=== PATIENT | male | born 1985 | race Caucasian/White ===

== ENCOUNTER 2020-04-17 13:49 | Emergency (ER) | payer BC, SELFPAY ==
[2020-04-17 13:58] VITALS: BP 145/96; PULSE 94; RESP 16; TEMP 36.8; O2SAT 98
--- NOTE | 2020-04-17 14:03 | ED.URI ---
HPI - URI/Sore Throat General Chief Complaint: Upper Respiratory Infection Stated Complaint: nausea fever aches headache Time Seen by Provider: 04/17/20 14:09 Source: patient and RN notes reviewed Mode of arrival: ambulatory Limitations: no limitations History of Present Illness HPI Narrative: 35-year-old male presents with concern for 1 day history of fever that occurred 2 days ago, reports dry heaves with small amount of vomiting for the past 2 days, approximately 8 episodes altogether. He reports fatigue, body aches. Reports sore throat yesterday. Denies cough, nasal drainage, ear pain, sinus pressure. Reports occasional shortness of breath. Reports a coworker tested positive for coronavirus, so his whole company was sent home and told to get tested. He has not yet been tested. Reports taking ibuprofen for pain MD elicited complaint: fever and other (nausea and vomiting ) Related Data Home Medications Medication Instructions Recorded Confirmed omeprazole 40 mg PO DAILY 10/18/19 04/17/20 paroxetine HCl [Paxil] 40 mg PO QAM 10/18/19 04/17/20 cholecalciferol (vitamin D3) 250 mcg PO DAILY 04/17/20 04/17/20 [Vitamin D3] hydroxyzine HCl 25 mg PO DAILY 04/17/20 04/17/20 Allergies Allergy/AdvReac Type Severity Reaction Status Date / Time lisinopril Allergy Difficulty Verified 04/17/20 14:07 Breathing Review of Systems Review of Systems: Narrative: CONSTITUTIONAL: Reports malaise, fever. Denies chills, sweats, or fever. EYES: Denies visual changes, redness, or discharge. ENT: Denies rhinorrhea, congestion, sinus pain, otalgia. Reports 1 day history of sore throat. CARDIOVASCULAR: Denies chest pain, palpitations, or edema. RESPIRATORY: Denies cough, reports dyspnea. GASTROINTESTINAL: Reports abdominal pain, nausea, vomiting. Denies diarrhea SKIN: Denies rash or itching. MUSCULOSKELETAL: Reports myalgia. NEUROLOGIC: Denies headache. All systems reviewed & are unremarkable except as noted in HPI and below PMFSH Social History Social History (Updated 10/18/19 @ 10:04 by Jinny Queen CNP) Smoking status: Never smoker Gender identity (if verbalized by the patient): Male Comments At time of signature, agree with nursing past medical, surgical, social and family history. There is no relevant family history pertinent to the presenting complaint Exam Narrative: Exam Narrative: GENERAL: Well-appearing, well-nourished, and in no acute distress. HEAD: Normocephalic EYES: PERRLA, conjunctivae clear ENT: Mucous membranes moist. Oropharynx erythematous without lesions. Tonsils enlarged and without exudate, no drooling, no hoarseness, no trismus, uvula midline. NECK: Supple. CHEST: Clear to auscultation, breath sounds equal. No wheezing, rhonchi, rales, or stridor. No respiratory distress, speaks in full sentences. GI: Bowel sounds active, no palpable masses, no rebound tenderness, mild left upper quadrant tenderness. HEART: Regular rate and rhythm. No murmur heard. SKIN: Warm, dry, no rash. NEURO: Alert and oriented x3. PSYCH: Normal mood and affect Course Course Emergency Course: Discussed with patient limited diagnostic capability at [facility] to diagnose abdominal pain, nausea and vomiting. Discussed transferring to emergency room for further evaluation. Patient denies transfer at this time, reports I do not need to go to the emergency room . Patient is aware of diagnosis, understands and agrees to treatment plan. Anticipatory guidance given. Patient agrees to follow-up as directed and is aware of reasons to seek care at the emergency department. Portions of this record may have been created with voice recognition software Vital Signs Vital signs: Vital Signs Temperature 98.2 F 04/17/20 13:58 Pulse Rate 94 04/17/20 13:58 Respiratory Rate 16 04/17/20 13:58 Blood Pressure 145/96 H 04/17/20 13:58 Pulse Oximetry 98 04/17/20 13:58 Temperature 98.2 F 04/17/20 13:58 Pulse Rate 94
== END 2020-04-17 14:33 | disposition home or self-care (01) ==
PROVIDERS: Emergency Provider Nurse Practitioner
DX: R11.2 Nausea with vomiting, unspecified (principal); K21.9 Gastro-esophageal reflux disease without esophagitis; F41.9 Anxiety disorder, unspecified; F32.9 Major depressive disorder, single episode, unspecified
CPT/HCPCS: 87081; 87880; 99213; G0463

== ENCOUNTER 2021-03-30 19:50 | Emergency (ER) | payer BC, SELFPAY ==
[2021-03-30 19:59] VITALS: BP 138/91; PULSE 94; RESP 20; TEMP 36.9; O2SAT 99
[2021-03-30 20:10] VITALS: BP 138/91; PULSE 94; RESP 20; TEMP 36.9; O2SAT 99
== END 2021-03-30 20:21 | disposition left against medical advice (07) ==
LOC: EXPBETH 19:56
PROVIDERS: Emergency Provider Registered Nurse
DX: Z53.21 Procedure and treatment not carried out due to patient leaving prior to being seen by health care provider (principal)
CPT/HCPCS: 99199

== ENCOUNTER 2023-08-03 13:06 | Emergency (ER) | payer BC, SELFPAY ==
[2023-08-03 13:10] VITALS: BP 116/86; PULSE 96; RESP 18; TEMP 37; O2SAT 100
[2023-08-03 13:23] VITALS: BP 116/86; PULSE 96; RESP 18; TEMP 37
--- NOTE | 2023-08-03 14:00 | ED.URI ---
HPI - URI/Sore Throat General Chief Complaint: Upper Respiratory Infection Stated Complaint: Cough/Congestion/Vomiting Time Seen by Provider: 08/03/23 13:49 Source: patient and RN notes reviewed Mode of arrival: ambulatory Limitations: no limitations History of Present Illness HPI Narrative: Patient presents today with a one-week history of postnasal drip, sore throat, fatigue, mild cough. He was seen by his PCP on 07/26/2023, on the day of onset of his symptoms. He was tested for strep throat, COVID-19, and influenza and these were all negative. He was sent in a prescription for Medrol Dosepak, but was told not to take it until he followed up in 3 or 4 days with his primary again. He has not been able to obtain a follow-up appointment and was told to come to urgent care. He currently rates his pain 5/10 and has tried no [id number] treatment prior to arrival. Related Data Home Medications Medication Instructions Recorded Confirmed omeprazole 40 mg capsule,delayed 40 mg PO DAILY 10/18/19 08/03/23 release paroxetine HCl 40 mg tablet (Paxil) 40 mg PO QAM 10/18/19 08/03/23 hydroxyzine HCl 25 mg tablet 25 mg PO DAILY 04/17/20 08/03/23 aripiprazole 20 mg tablet 20 mg PO DAILY 03/30/21 08/03/23 Allergies Allergy/AdvReac Type Severity Reaction Status Date / Time lisinopril Allergy Difficulty Verified 08/03/23 13:22 Breathing Review of Systems Review of Systems: CONSTITUTIONAL: Denies body aches, fever, chills, or sweats.+ fatigue EYES: Denies visual changes, redness, or discharge. ENT: Denies rhinorrhea, congestion, or otalgia.+ postnasal drip, sore throat CARDIOVASCULAR: Denies chest pain, palpitations, or edema. RESPIRATORY: Denies dyspnea.+ cough GASTROINTESTINAL: Denies abdominal pain, nausea, vomiting, or diarrhea. GENITOURINARY: Denies dysuria or hematuria. SKIN: Denies rash, itching, or wounds. MUSCULOSKELETAL: Denies back pain, joint pain, or myalgia. NEUROLOGIC: Denies headache, numbness, tingling, or weakness. PSYCH: Denies depression or anxiety. [facility] Past Medical History Medical History (Updated 08/03/23 @ 14:03 by Amalia Pham, [employer], ) Anxiety Fracture of left foot GERD (gastroesophageal reflux disease) Social History Social History Smoking status: Never smoker Gender identity (if verbalized by the patient): Male Comments At time of signature, I have reviewed and agree with nursing past medical, surgical, social and family history unless otherwise noted. Please see nursing chart for further information. There is no relevant family history pertinent to the presenting complaint Exam Narrative: GENERAL: Well-appearing, well-nourished, and in no acute distress. HEAD: Normocephalic, atraumatic. EYES: EOMI. No redness or drainage. Conjunctivae normal. ENT: Mucous membranes pink and moist. Nares clear. No rhinorrhea. TMs normal bilaterally. Throat normal. Uvula midline. NECK: Normal AROM. Supple. No lymphadenopathy. CHEST: No respiratory distress. Clear to auscultation. HEART: Regular rate and rhythm. No murmur appreciated. Normal peripheral pulses. EXTREMITIES: Normal range of motion. No edema. SKIN: Warm, dry, no rash. Capillary refill normal. Normal skin turgor. NEURO: No focal deficits. Alert and oriented x3. Gait steady. PSYCH: Normal affect. No signs of depression or anxiety. Course Course Level of Care: Express Care Visit Vital Signs Vital signs: Vital Signs Temperature 98.6 F 08/03/23 13:10 Pulse Rate 96 08/03/23 13:10 Respiratory Rate 18 08/03/23 13:10 Blood Pressure 116/86 08/03/23 13:10 Pulse Oximetry 100 08/03/23 13:10 Oxygen Delivery Room Air 08/03/23 13:10 Temperature 98.6 F 08/03/23 13:23 Pulse Rate 96 08/03/23 13:23 Respiratory Rate 18 08/03/23 13:23 Blood Pressure 116/86 08/03/23 13:23 Pulse Oximetry 100 08/03/23 13:10 Oxygen Deli
== END 2023-08-03 14:05 | disposition home or self-care (01) ==
PROVIDERS: Emergency Provider Nurse Practitioner
DX: J06.9 Acute upper respiratory infection, unspecified (principal); K21.9 Gastro-esophageal reflux disease without esophagitis; F41.9 Anxiety disorder, unspecified
CPT/HCPCS: 99211; G0463

== ENCOUNTER 2025-05-31 14:22 | Emergency (ER) | payer SELFPAY ==
--- OUTSIDE RECORDS SUMMARY | 2025-05-31 14:25 | XMS_ITS | Clinical Summary ---
Author Organization [facility] Address [address] [place] [address] Care Team Providers Care Saddle Maker Name Role Phone Hollie Alvares NP Primary Care Provider [phone] Evy Huffman MD Unavailable Allergies Active Allergy Reactions Criticality Noted Date Comments Erythromycin Unknown,Itching Low 04/21/2016 Lisinopril Palpitations Low 09/14/2017 Medications cholecalciferol (VITAMIN D-3) 5,000 unit capsule Take 1 capsule (5,000 Units total) by mouth daily Active albuterol HFA (PROVENTIL HFA,VENTOLIN HFA,PROAIR HFA) 90 mcg/actuation inhaler Inhale 2 puffs every 6 (six) hours as needed Active fluticasone furoate-vilanteroL (BREO ELLIPTA) 100-25 mcg/dose diskus inhaler Inhale 1 puff daily Rinse mouth with water after use. Do not swallow. 30 each 11 4 Active ARIPiprazole (ABILIFY) 10 mg tabletIndications: Bipolar 1 disorder, mixed, severe (HCC) Take 1 tablet (10 mg total) by mouth daily 90 tablet 3 4 Active ondansetron ODT (ZOFRAN-ODT) 4 mg disintegrating tabletIndications: Nausea Take 1 tablet (4 mg total) by mouth every 8 (eight) hours as needed for nausea or vomiting 21 tablet 1 4 Active naproxen (NAPROSYN) 500 mg tablet Take 1 tablet (500 mg total) by mouth 2 (two) times a day as needed for pain 10 tablet 5 Active cyclobenzaprine (FLEXERIL) 10 mg tablet Take 1 tablet (10 mg total) by mouth 2 (two) times a day as needed for muscle spasms 10 tablet 5 Active HYDROcodone-acetam inophen (NORCO) 5-325 mg per tabletIndications: Pain Take 1 tablet by mouth every 6 (six) hours as needed for pain 5 tablet 5 Active hydrOXYzine (ATARAX) 25 mg tabletIndications: Anxiety TAKE 1 TABLET BY MOUTH ONCE DAILY NEEDED FOR ANXIETY 90 tablet 3 5 Active metFORMIN XR (GLUCOPHAGE XR) 500 mg 24 hr tabletIndications: Prediabetes Take 1 tablet (500 mg total) by mouth daily with breakfast 90 tablet 3 5 Active PARoxetine (PAXIL) 40 mg tabletIndications: Mild episode of recurrent major depressive disorder Take one 40 mg tablet with one 10 mg tablet by mouth daily 90 tablet 3 5 Active omeprazole (PriLOSEC) 40 mg capsuleIndications :Gastroesophageal reflux disease Take 1 capsule by mouth once daily 100 capsule 1 5 Active cholestyramine (QUESTRAN) 4 gram powderIndications: Diarrhea, unspecified type Take 1 packet (4 g total) by mouth 2 (two) times a day as needed (diarrhea) 60 packet 5 Active PARoxetine (PAXIL) 10 mg tabletIndications: Mild episode of recurrent major depressive disorder Take one 40 mg tablet with one 10 mg tablet by mouth daily 90 tablet 3 5 Active Active Problems Problem Noted Date Diagnosed Date Inflamed external hemorrhoid 01/26/2023 Assessment & Plan (01/27/2023 9:07 AM CDT): -advised patient to use hydrocortisone 2.5% cream twice daily as prescribed in ED -advised patient to increase water and fiber intake. Patient may use OTC Benefiber 1-3 times daily -if pain worsens or does not improve, let me know and we can refer to general surgery Low testosterone 09/04/2020 Assessment & Plan (07/22/2022 8:39 AM CDT): HPI: Condition is stable A&P: Discussed/ordered labs, encouraged healthy, low carbohydrate lifestyle and at least 150min/week of exercise, Dr. Us endo told him his levels are fine and not following further. Assessment & Plan (01/20/2022 8:36 AM CDT): HPI: Condition is stable A&P: Discussed/ordered labs, encouraged healthy, low carbohydrate lifestyle and at least 150min/week of exercise, continue Treatment plan by Dr. Us endocrinology-just monitoring Assessment & Plan (07/22/2021 7:34 AM CDT): HPI: Condition is stable A&P: Discussed/ordered labs, encouraged healthy, low carbohydrate lifestyle and at least 150min/week of exercise, continue Treatment plan by Dr. Us endocrinology Assessment & Plan (09/22/2020 9:30 AM UTILITY TECH): Diagnosed in 2018 and was on testosterone injection for one year He has been off testosterone for 6 month Patient asymptomatic Patient had normal TSH of 3.4 with normal metabolic panel in August/2020 Plan: We will obtain fasting am testosterone levels Discussed with patient that his testosterone could have been low due to untreated sleep apnea Follow up and further recommendation will be decided after we obtain above test results Assessment & Plan (09/04/2020 8:57 AM UTILITY TECH): He would like to see endocrinology He says his methylfolate has been very low He was previously on testosterone-he has been off of it x 4 mo. Prediabetes 09/04/2020 Assessment & Plan (02/27/2025 9:07 AM CDT): -chronic, stable -Discussed/ordered labs -encouraged healthy, low carbohydrate lifestyle and at least 150min/week of exercise. -continue on metformin XR 500 mg daily - start on zepbound 2.5mg weekly x 4 wks, then increase to 5 mg Discussed the importance of site rotation, stay 2 fingerbreadths away from belly button. Discussed the importance of cutting meals in half starting after first dose. Discussed that this will slow gastric emptying which will make pt feel full longer and fill up faster. Discussed the one bite or one gulp too much scenario that can increase nausea/vomiting. Listen to your body. Reiterated that pt does not have family or personal history of medullary thyroid cancer or pancreatitis. -Follow up in 3 months or sooner as needed Assessment & Plan (08/22/2024 9:28 AM UTILITY TECH): -chronic, stable -Discussed/ordered labs -encouraged healthy, low carbohydrate lifestyle and at least 150min/week of exercise. -continue on metformin XR 500 mg daily -Advised patient I will check with my staff to see if we ever received the PA for the [place] -Patient is currently taking semaglutide 0.5 mg weekly through [facility] Assessment & Plan (02/20/2024 1:37 PM CDT): -chronic, stable -Discussed/ordered labs -encouraged healthy, low carbohydrate lifestyle and at least 150min/week of exercise. -continue on metformin XR 500 mg daily Assessment & Plan (09/30/2023 10:26 AM UTILITY TECH): -chronic, Condition is unknown, no data to review at this time to make an evaluation -Discussed/ordered labs, encouraged healthy, low carbohydrate lifestyle and at least 150min/week of exercise. Assessment & Plan (01/27/2023 7:03 AM CDT): HPI: Condition is stable A&P: Discussed/ordered labs, encouraged healthy, low carbohydrate lifestyle and at least 150min/week of exercise. Assessment & Plan (07/20/2022 7:39 AM CDT): HPI: Condition is stable A&P: Discussed/ordered labs, encouraged healthy, low carbohydrate lifestyle and at least 150min/week of exercise Assessment & Plan (01/20/2022 7:00 AM CDT): HPI: Condition is stable A&P: Discussed/ordered labs, encouraged healthy, low carbohydrate lifestyle and at least 150min/week of exercise Assessment & Plan (07/22/2021 7:34 AM CDT): HPI: Condition is stable A&P: Discussed/ordered labs, encouraged healthy, low carbohydrate lifestyle and at least 150min/week of exercise Assessment & Plan (09/04/2020 9:08 AM UTILITY TECH): HPI: Condition is new A&P: Discussed/ordered labs, encouraged healthy, low carbohydrate lifestyle and at least 150min/week of exercise, work on lifestyle changes. No meds needed at this time. Bipolar 1 disorder, mixed, severe 08/14/2020 Assessment & Plan (04/22/2025 8:50 AM CDT): -chronic, improving -continue on Abilify 10 mg daily, paroxetine 40 and 10 mg daily, and hydroxyzine 25 mg daily as needed for anxiety -Follow up in 3 months or sooner as needed Patient reiterated no suicidal thoughts at this time; take medication as directed; contact 911 and go to the ER if becomes suicidal; discussed side effects of medication with patient; encouraged healthy diet and exericise; encouraged patient to see a counselor Assessment & Plan (02/27/2025 9:04 AM CDT): -chronic, not at goal- reports he has been feeling a little down over the past month -patient does not want to changed his medication at this time -continue on Abilify 10 mg daily, paroxetine 40 mg daily, and hydroxyzine 25 mg daily as needed for anxiety -Advised patient follow up if this does not improve or if it worsens Patient reiterated no suicidal thoughts at this time; take medication as directed; contact 911 and go to the ER if becomes suicidal; discussed side effects of medication with patient; encouraged healthy diet and exericise; encouraged patient to see a counselor Assessment & Plan (08/22/2024 9:28 AM UTILITY TECH): -chronic, stable -continue on Abilify 10 mg daily, paroxetine 40 mg daily, and hydroxyzine 25 mg daily as needed for anxiety Patient reiterated no suicidal thoughts at this time; take medication as directed; contact 911 and go to the ER if becomes suicidal; discussed side effects of medication with patient; encouraged healthy diet and exericise; encouraged patient to see a counselor Assessment & Plan (02/22/2024 9:52 AM CDT): -chronic, stable -continue on Abilify 10 mg daily, paroxetine 40 mg daily, and hydroxyzine 25 mg daily as needed for anxiety Patient reiterated no suicidal thoughts at this time; take medication as directed; contact 911 and go to the ER if becomes suicidal; discussed side effects of medication with patient; encouraged healthy diet and exericise; encouraged patient to see a counselor Assessment & Plan (09/30/2023 10:25 AM UTILITY TECH): Patient reiterated no suicidal thoughts at this time; take medication as directed; contact 911 and go to the ER if becomes suicidal; discussed side effects of medication with patient; encouraged healthy diet and exericise; encouraged patient to see a counselor -chronic, stable -continue on Abilify 10 mg daily, paroxetine 40 mg daily, and hydroxyzine 25 mg daily as needed for anxiety Assessment & Plan (05/13/2023 8:27 AM CDT): Patient reiterated no suicidal thoughts at this time; take medication as directed; contact 911 and go to the ER if becomes suicidal; discussed side effects of medication with patient; encouraged healthy diet and exericise; encouraged patient to see a counselor -chronic, improving -continue on Abilify 10 mg daily, paroxetine 40 mg daily, and hydroxyzine 25 mg daily as needed for anxiety Assessment & Plan (04/14/2023 8:04 AM CDT): Patient reiterated no suicidal thoughts at this time; take medication as directed; contact 911 and go to the ER if becomes suicidal; discussed side effects of medication with patient; encouraged healthy diet and exericise; encouraged patient to see a counselor -chronic, improving, but not at goal -increase to Abilify 10 mg daily. Continue on paroxetine 40 mg daily and hydroxyzine 25 mg daily as needed for anxiety. -letter written to excuse patient from work today for this appointment and in case he experiences side effects with increasing the Abilify. -follow up in 4 weeks or sooner as needed Assessment & Plan (01/27/2023 9:05 AM CDT): Patient reiterated no suicidal thoughts at this time; take medication as directed; contact 911 and go to the ER if becomes suicidal; discussed side effects of medication with patient; encouraged healthy diet and exericise; encouraged patient to see a counselor HPI: Condition is stable Patient states he is not been taking his Abilify in the past several months,, but he is feeling well. A&P: Discussed/ordered labs, encouraged healthy, low carbohydrate lifestyle and at least 150min/week of exercise, continue on hydroxyzine 25 mg daily as needed and paroxetine 40 mg daily Assessment & Plan (07/20/2022 7:36 AM CDT): Patient reiterated no suicidal thoughts at this time; take medication as directed; contact 911 and go to the ER if becomes suicidal; discussed side effects of medication with patient; encouraged healthy diet and exericise; encouraged patient to see a counselor HPI: Condition is stable A&P: Discussed/ordered labs, encouraged healthy, low carbohydrate lifestyle and at least 150min/week of exercise, continue on Abilify 10 mg daily, hydroxyzine 25 mg daily as needed, paroxetine 40 mg daily Assessment & Plan (01/20/2022 7:01 AM CDT): Patient reiterated no suicidal thoughts at this time; take medication as directed; contact 911 and go to the ER if becomes suicidal; discussed side effects of medication with patient; encouraged healthy diet and exericise; encouraged patient to see a counselor HPI: Condition is stable A&P: Discussed/ordered labs, encouraged healthy, low carbohydrate lifestyle and at least 150min/week of exercise, continue on Abilify 10 mg daily, hydroxyzine 25mg As needed, paroxetine 40 mg daily Assessment & Plan (07/22/2021 7:34 AM CDT): Patient reiterated no suicidal thoughts at this time; take medication as directed; contact 911 and go to the ER if becomes suicidal; discussed side effects of medication with patient; encouraged healthy diet and exericise; encouraged patient to see a counselor HPI: Condition is stable A&P: Discussed/ordered labs, encouraged healthy, low carbohydrate lifestyle and at least 150min/week of exercise, continue on Abilify 10 mg daily, paroxetine 40 mg daily, hydroxyzine 25 mg days he works Assessment & Plan (04/22/2021 9:02 AM CDT): Patient reiterated no suicidal thoughts at this time; take medication as directed; contact 911 and go to the ER if becomes suicidal; discussed side effects of medication with patient; encouraged healthy diet and exericise; encouraged patient to see a counselor HPI: Condition is improving ; doing great. Feels like he is under good control. Things are good at work and home. A&P: Discussed/ordered labs, encouraged healthy, low carbohydrate lifestyle and at least 150min/week of exercise, continue on abilify 10mg daily, paroxetine 40mg daily, hydroxyzine 25mg on the days he works. Assessment & Plan (03/11/2021 8:16 AM CDT): Patient reiterated no suicidal thoughts at this time; take medication as directed; contact 911 and go to the ER if becomes suicidal; discussed side effects of medication with patient; encouraged healthy diet and exericise; encouraged patient to see a counselor HPI: Condition is Improving, but not at goal. A&P: Discussed/ordered labs, encouraged healthy, low carbohydrate lifestyle and at least 150min/week of exercise, continue on Apriprazole 20 mg daily, hydroxyzine 25 mg once daily, and paroxetine 40 mg daily. Did not follow-up with counselor, recommended meeting with a counselor again. Assessment & Plan (01/21/2021 9:05 AM CDT): Patient reiterated no suicidal thoughts at this time; take medication as directed; contact 911 and go to the ER if becomes suicidal; discussed side effects of medication with patient; encouraged healthy diet and exericise; encouraged patient to see a counselor HPI: Condition is worsening A&P: Discussed/ordered labs, encouraged healthy, low carbohydrate lifestyle and at least 150min/week of exercise, continue on paroxetine 40 mg daily, hydroxyzine 25 mg once daily. We will increase the abilify to 20mg daily. Recommend seeing counselor, list given. Assessment & Plan (10/22/2020 8:09 AM UTILITY TECH): Patient reiterated no suicidal thoughts at this time; take medication as directed; contact 911 and go to the ER if becomes suicidal; discussed side effects of medication with patient; encouraged healthy diet and exericise; encouraged patient to see a counselor HPI: Condition is improving A&P: Discussed/ordered labs, encouraged healthy, low carbohydrate lifestyle and at least 150min/week of exercise, continue on paroxetine 40 mg daily, Abilify 10 mg daily, and hydroxyzine 25 mg as needed for rescue only. He has been needing it about once a day when he is at work. Assessment & Plan (09/04/2020 8:53 AM UTILITY TECH): Patient reiterated no suicidal thoughts at this time; take medication as directed; contact 911 and go to the ER if becomes suicidal; discussed side effects of medication with patient; encouraged healthy diet and exericise; encouraged patient to see a counselor HPI: Condition is improving A&P: Discussed/ordered labs, encouraged healthy, low carbohydrate lifestyle and at least 150min/week of exercise, continue on paroxeting 40mg daily, at last visit we gave abilify 10mg daily, he is using the hydroxyzine 25mg as needed for rescue. He says he uses the hydroxyzine usually about once daily. He has only needed it twice one day recently. Assessment & Plan (08/14/2020 8:31 AM UTILITY TECH): Patient reiterated no suicidal thoughts at this time; take medication as directed; contact 911 and go to the ER if becomes suicidal; discussed side effects of medication with patient; encouraged healthy diet and exericise; encouraged patient to see a counselor HPI: Condition is worsening A&P: Discussed/ordered labs, encouraged healthy, low carbohydrate lifestyle and at least 150min/week of exercise, start on abilify 10mg daily to be a mood stabilizer. Continue on the paroxetine 40mg daily. Pt has been using the hydroxyzine 25mg 1- 2 times daily. When he feels like he does right now he would normally take the hydroxyzine. It works well for him within about 10 min. Continue on this medication plan. We will need to follow up in a few weeks Allergic rhinitis 05/13/2020 Assessment & Plan (02/27/2025 8:54 AM CDT): -chronic, stable Discussed environmental controls No smoking around patient, no animals in bedroom, keep windows closed, no hanging clothes on the line Take zyrtec/claritin/arsh in the am Saline rinse in the am Flonase 1 sprays each nostril, aim away from cartilage, spray once-baby sniff, switch to the other nostril and repeat. Saline rinse about 15 min before bed Flonase 1 sprays each nostril, aim away from cartilage, spray once-baby sniff, switch to the other nostril and repeat. If working or playing outside, may need to do saline rinses when coming in and change clothes right away Recommend staying on the above treatment from the of December to Come off of meds if possible during the summer Then restart on meds mid to may until Thanksgiving Come off of meds if possible during the winter Assessment & Plan (02/20/2024 1:37 PM CDT): -chronic, stable Discussed environmental controls No smoking around patient, no animals in bedroom, keep windows closed, no hanging clothes on the line Take zyrtec/claritin/arsh in the am Saline rinse in the am Flonase 1 sprays each nostril, aim away from cartilage, spray once-baby sniff, switch to the other nostril and repeat. Saline rinse about 15 min before bed Flonase 1 sprays each nostril, aim away from cartilage, spray once-baby sniff, switch to the other nostril and repeat. If working or playing outside, may need to do saline rinses when coming in and change clothes right away Recommend staying on the above treatment from the of December to Come off of meds if possible during the summer Then restart on meds mid to may until Thanksgiving Come off of meds if possible during the winter Assessment & Plan (09/30/2023 7:09 AM UTILITY TECH): HPI: Condition is stable A&P: Discussed environmental controls No smoking around patient, no animals in bedroom, keep windows closed, no hanging clothes on the line Take zyrtec/claritin/arsh in the am Saline rinse in the am Flonase 1 sprays each nostril, aim away from cartilage, spray once-baby sniff, switch to the other nostril and repeat. Saline rinse about 15 min before bed Flonase 1 sprays each nostril, aim away from cartilage, spray once-baby sniff, switch to the other nostril and repeat. If working or playing outside, may need to do saline rinses when coming in and change clothes right away Recommend staying on the above treatment from the of December to Come off of meds if possible during the summer Then restart on meds mid to may until Thanksgiving Come off of meds if possible during the winter Assessment & Plan (01/27/2023 7:03 AM CDT): HPI: Condition is stable A&P: Discussed environmental controls No smoking around patient, no animals in bedroom, keep windows closed, no hanging clothes on the line Take zyrtec/claritin/arsh in the am Saline rinse in the am Flonase 1 sprays each nostril, aim away from cartilage, spray once-baby sniff, switch to the other nostril and repeat. Saline rinse about 15 min before bed Flonase 1 sprays each nostril, aim away from cartilage, spray once-baby sniff, switch to the other nostril and repeat. If working or playing outside, may need to do saline rinses when coming in and change clothes right away Recommend staying on the above treatment from the of December to Come off of meds if possible during the summer Then restart on meds mid to may until Thanksgiving Come off of meds if possible during the winter Assessment & Plan (07/22/2022 8:39 AM CDT): HPI: Condition is not at/near goal A&P: Discussed environmental controls No smoking around patient, no animals in bedroom, keep windows closed, no hanging clothes on the line Take zyrtec/claritin/arsh in the am Saline rinse in the am Flonase 1 sprays each nostril, aim away from cartilage, spray once-baby sniff, switch to the other nostril and repeat. Saline rinse about 15 min before bed Flonase 1 sprays each nostril, aim away from cartilage, spray once-baby sniff, switch to the other nostril and repeat. If working or playing outside, may need to do saline rinses when coming in and change clothes right away Recommend staying on the above treatment from the of December to Come off of meds if possible during the summer Then restart on meds mid to may until Thanksgiving Come off of meds if possible during the winter Assessment & Plan (01/20/2022 7:02 AM CDT): HPI: Condition is stable A&P: Discussed environmental controls No smoking around patient, no animals in bedroom, keep windows closed, no hanging clothes on the line Take zyrtec/claritin/arsh in the am Saline rinse in the am Flonase 1 sprays each nostril, aim away from cartilage, spray once-baby sniff, switch to the other nostril and repeat. Saline rinse about 15 min before bed Flonase 1 sprays each nostril, aim away from cartilage, spray once-baby sniff, switch to the other nostril and repeat. If working or playing outside, may need to do saline rinses when coming in and change clothes right away Recommend staying on the above treatment from the december to Come off of meds if possible during the summer Then restart on meds mid to may until Thanksgiving Come off of meds if possible during the winter Assessment & Plan (07/22/2021 7:35 AM CDT): HPI: Condition is stable A&P: Discussed environmental controls No smoking around patient, no animals in bedroom, keep windows closed, no hanging clothes on the line Take zyrtec/claritin/arsh in the am Saline rinse in the am Saline rinse about 15 min before bed Flonase 2 sprays each nostril, aim away from cartilage, spray once-baby sniff, switch to the other nostril and repeat. Wait a min or two and then do the second spray in each nostril, followed by a baby sniff If working or playing outside, may need to do saline rinses when coming in and change clothes right away Recommend staying on the above treatment from the of December to Come off of meds if possible during the summer Then restart on meds mid to may until Thanksgiving Come off of meds if possible during the winter Assessment & Plan (10/22/2020 8:12 AM UTILITY TECH): HPI: Condition is worsening. Turbinates are swollen and having occasional nose bleeds A&P: Discussed environmental controls No smoking around patient, no animals in bedroom, keep windows closed, no hanging clothes on the line Take zyrtec/claritin/allgera in the am Saline rinse in the am Saline rinse about 15 min before bed Flonase 2 sprays each nostril, aim away from cartilage, spray once-baby sniff, switch to the other nostril and repeat. Wait a min or two and then do the second spray in each nostril, followed by a baby sniff If working or playing outside, may need to do saline rinses when coming in and change clothes right away Recommend staying on the above treatment from the of December to Come off of meds if possible during the summer Then restart on meds mid to may until Thanksgiving Come off of meds if possible during the winter Assessment & Plan (08/14/2020 8:06 AM UTILITY TECH): HPI: Condition is stable A&P: Discussed environmental controls No smoking around patient, no animals in bedroom, keep windows closed, no hanging clothes on the line Take zyrtec/claritin/allgera in the am Saline rinse in the am Saline rinse about 15 min before bed Flonase 2 sprays each nostril, aim away from cartilage, spray once-baby sniff, switch to the other nostril and repeat. Wait a min or two and then do the second spray in each nostril, followed by a baby sniff If working or playing outside, may need to do saline rinses when coming in and change clothes right away Recommend staying on the above treatment from the of December to Come off of meds if possible during the summer Then restart on meds mid to may until Thanksgiving Come off of meds if possible during the winter He is not currently taking the meds, he stopped them in July 2020 Assessment & Plan (05/13/2020 8:53 AM CDT): Discussed environmental controls No smoking around patient, no animals in bedroom, keep windows closed, no hanging clothes on the line Take zyrtec/claritin/allgera in the am Saline rinse in the am Saline rinse about 15 min before bed Flonase 2 sprays each nostril, aim away from cartilage, spray once-baby sniff, switch to the other nostril and repeat. Wait a min or two and then do the second spray in each nostril, followed by a baby sniff If working or playing outside, may need to do saline rinses when coming in and change clothes right away Recommend staying on the above treatment from the of December to Come off of meds if possible during the summer Then restart on meds mid to may until Thanksgiving Come off of meds if possible during the winter Obstructive sleep apnea syndrome 05/13/2020 Assessment & Plan (02/27/2025 9:06 AM CDT): -chronic, stable Pt states using cpap for 9 hours/night 7 nights/wk Pt states less daytime somnolence, feels better when using it. Would recommend the continued use of cpap Continue seeing Dr. Huffman sleep Medicine - start on zepbound 2.5mg weekly x 4 wks, then increase to 5 mg Discussed the importance of site rotation, stay 2 fingerbreadths away from belly button. Discussed the importance of cutting meals in half starting after first dose. Discussed that this will slow gastric emptying which will make pt feel full longer and fill up faster. Discussed the one bite or one gulp too much scenario that can increase nausea/vomiting. Listen to your body. Reiterated that pt does not have family or personal history of medullary thyroid cancer or pancreatitis. -Follow up in 3 months or sooner as needed Assessment & Plan (08/22/2024 7:47 AM UTILITY TECH): -chronic, stable Pt states using cpap for 9 hours/night 7 nights/wk Pt states less daytime somnolence, feels better when using it. Would recommend the continued use of cpap Continue seeing Dr. Huffman sleep Medicine Assessment & Plan (02/20/2024 1:37 PM CDT): -chronic, stable Pt states using cpap for 9 hours/night 7 nights/wk Pt states less daytime somnolence, feels better when using it. Would recommend the continued use of cpap Continue seeing Dr. Huffman sleep Medicine Assessment & Plan (09/30/2023 7:09 AM UTILITY TECH): -chronic, stable Pt states using cpap for 9 hours/night 7 nights/wk Pt states less daytime somnolence, feels better when using it. Would recommend the continued use of cpap Continue seeing Dr. Huffman sleep Medicine Assessment & Plan (01/27/2023 7:03 AM CDT): Pt states using cpap for 9 hours/night 7 nights/wk Pt states less daytime somnolence, feels better when using it. Would recommend the continued use of cpap Continue seeing Dr. Huffman sleep Medicine Assessment & Plan (07/20/2022 7:39 AM CDT): Pt states using cpap for 9 hours/night 7 nights/wk Pt states less daytime somnolence, feels better when using it. Would recommend the continued use of cpap Continue to see Dr. Huffman sleep Medicine Assessment & Plan (01/20/2022 7:01 AM CDT): Pt states using cpap for 9 hours/night 7 nights/wk Pt states less daytime somnolence, feels better when using it. Would recommend the continued use of cpap Assessment & Plan (07/22/2021 8:29 AM CDT): Pt states using cpap for 9 hours/night 7 nights/wk Pt states less daytime somnolence, feels better when using it. Would recommend the continued use of cpap Assessment & Plan (09/22/2020 9:31 AM UTILITY TECH): Untreated for few years Started C-PAP 3 month ago with symptomatic improvement in energy and sleep - encouraged patient to continue treatment. Assessment & Plan (08/14/2020 8:04 AM UTILITY TECH): HPI: Condition is improving A&P: Discussed/ordered labs, encouraged healthy, low carbohydrate lifestyle and at least 150min/week of exercise, pt is seeing Dr. Huffman (sleep med) Pt states using cpap for 7-9 hours/night 7 nights/wk Pt states less daytime somnolence, feels better when using it. Would recommend the continued use of cpap Assessment & Plan (05/13/2020 8:56 AM CDT): Pt has been diagnosed previously and has cpap but he hasn't used it. He would like retested. Mild episode of recurrent major depressive disor ranjeet 11/09/2018 Assessment & Plan (04/22/2025 8:50 AM CDT): -chronic, improving -continue on Abilify 10 mg daily, paroxetine 40 and 10 mg daily, and hydroxyzine 25 mg daily as needed for anxiety -Follow up in 3 months or sooner as needed Patient reiterated no suicidal thoughts at this time; take medication as directed; contact 911 and go to the ER if becomes suicidal; discussed side effects of medication with patient; encouraged healthy diet and exericise; encouraged patient to see a counselor Orders: PARoxetine (PAXIL) 10 mg tablet; Take one 40 mg tablet with one 10 mg tablet by mouth daily Assessment & Plan (02/27/2025 9:05 AM CDT): -chronic, not at goal- reports he has been feeling a little down over the past month -patient does not want to changed his medication at this time -continue on Abilify 10 mg daily, paroxetine 40 mg daily, and hydroxyzine 25 mg daily as needed for anxiety -Advised patient follow up if this does not improve or if it worsens Patient reiterated no suicidal thoughts at this time; take medication as directed; contact 911 and go to the ER if becomes suicidal; discussed side effects of medication with patient; encouraged healthy diet and exericise; encouraged patient to see a counselor Assessment & Plan (08/22/2024 9:28 AM UTILITY TECH): -chronic, stable -continue on Abilify 10 mg daily, paroxetine 40 mg daily, and hydroxyzine 25 mg daily as needed for anxiety Patient reiterated no suicidal thoughts at this time; take medication as directed; contact 911 and go to the ER if becomes suicidal; discussed side effects of medication with patient; encouraged healthy diet and exericise; encouraged patient to see a counselor Assessment & Plan (02/20/2024 1:36 PM CDT): -chronic, stable -continue on Abilify 10 mg daily, paroxetine 40 mg daily, and hydroxyzine 25 mg daily as needed for anxiety Patient reiterated no suicidal thoughts at this time; take medication as directed; contact 911 and go to the ER if becomes suicidal; discussed side effects of medication with patient; encouraged healthy diet and exericise; encouraged patient to see a counselor Assessment & Plan (09/30/2023 10:26 AM UTILITY TECH): Patient reiterated no suicidal thoughts at this time; take medication as directed; contact 911 and go to the ER if becomes suicidal; discussed side effects of medication with patient; encouraged healthy diet and exericise; encouraged patient to see a counselor -chronic, stable -continue on Abilify 10 mg daily, paroxetine 40 mg daily, and hydroxyzine 25 mg daily as needed for anxiety Assessment & Plan (05/13/2023 8:28 AM CDT): Patient reiterated no suicidal thoughts at this time; take medication as directed; contact 911 and go to the ER if becomes suicidal; discussed side effects of medication with patient; encouraged healthy diet and exericise; encouraged patient to see a counselor -chronic, improving -continue on Abilify 10 mg daily, paroxetine 40 mg daily, and hydroxyzine 25 mg daily as needed for anxiety Assessment & Plan (01/27/2023 9:05 AM CDT): Patient reiterated no suicidal thoughts at this time; take medication as directed; contact 911 and go to the ER if becomes suicidal; discussed side effects of medication with patient; encouraged healthy diet and exericise; encouraged patient to see a counselor HPI: Condition is stable Patient states he is not been taking his Abilify in the past several months,, but he is feeling well. A&P: Discussed/ordered labs, encouraged healthy, low carbohydrate lifestyle and at least 150min/week of exercise, continue on hydroxyzine 25 mg daily as needed and paroxetine 40 mg daily Assessment & Plan (07/20/2022 7:36 AM CDT): Patient reiterated no suicidal thoughts at this time; take medication as directed; contact 911 and go to the ER if becomes suicidal; discussed side effects of medication with patient; encouraged healthy diet and exericise; encouraged patient to see a counselor HPI: Condition is stable A&P: Discussed/ordered labs, encouraged healthy, low carbohydrate lifestyle and at least 150min/week of exercise, continue on Abilify 10 mg daily, hydroxyzine 25 mg daily as needed, paroxetine 40 mg daily Assessment & Plan (01/20/2022 7:02 AM CDT): Patient reiterated no suicidal thoughts at this time; take medication as directed; contact 911 and go to the ER if becomes suicidal; discussed side effects of medication with patient; encouraged healthy diet and exericise; encouraged patient to see a counselor HPI: Condition is stable A&P: Discussed/ordered labs, encouraged healthy, low carbohydrate lifestyle and at least 150min/week of exercise, continue on Abilify 10 mg daily, hydroxyzine 25mg As needed, paroxetine 40 mg daily Assessment & Plan (07/22/2021 7:36 AM CDT): Patient reiterated no suicidal thoughts at this time; take medication as directed; contact 911 and go to the ER if becomes suicidal; discussed side effects of medication with patient; encouraged healthy diet and exericise; encouraged patient to see a counselor HPI: Condition is stable A&P: Discussed/ordered labs, encouraged healthy, low carbohydrate lifestyle and at least 150min/week of exercise, continue on Abilify 10 mg daily, paroxetine 40 mg daily, hydroxyzine 25 mg days he works Assessment & Plan (04/22/2021 9:02 AM CDT): Patient reiterated no suicidal thoughts at this time; take medication as directed; contact 911 and go to the ER if becomes suicidal; discussed side effects of medication with patient; encouraged healthy diet and exericise; encouraged patient to see a counselor HPI: Condition is improving ; doing great. Feels like he is under good control. Things are good at work and home. A&P: Discussed/ordered labs, encouraged healthy, low carbohydrate lifestyle and at least 150min/week of exercise, continue on abilify 10mg daily, paroxetine 40mg daily, hydroxyzine 25mg on the days he works. Assessment & Plan (03/11/2021 8:21 AM CDT): Patient reiterated no suicidal thoughts at this time; take medication as directed; contact 911 and go to the ER if becomes suicidal; discussed side effects of medication with patient; encouraged healthy diet and exericise; encouraged patient to see a counselor HPI: Condition is Improving, but not at goal. A&P: Discussed/ordered labs, encouraged healthy, low carbohydrate lifestyle and at least 150min/week of exercise, continue on Apriprazole 20 mg daily, hydroxyzine 25 mg once daily, and paroxetine 40 mg daily. Did not follow-up with counselor, recommended meeting with a counselor again. Assessment & Plan (01/21/2021 9:05 AM CDT): Patient reiterated no suicidal thoughts at this time; take medication as directed; contact 911 and go to the ER if becomes suicidal; discussed side effects of medication with patient; encouraged healthy diet and exericise; encouraged patient to see a counselor HPI: Condition is worsening A&P: Discussed/ordered labs, encouraged healthy, low carbohydrate lifestyle and at least 150min/week of exercise, continue on paroxetine 40 mg daily, hydroxyzine 25 mg once daily. We will increase the abilify to 20mg daily. Recommend seeing counselor, list given. Assessment & Plan (10/22/2020 8:10 AM UTILITY TECH): Patient reiterated no suicidal thoughts at this time; take medication as directed; contact 911 and go to the ER if becomes suicidal; discussed side effects of medication with patient; encouraged healthy diet and exericise; encouraged patient to see a counselor HPI: Condition is improving A&P: Discussed/ordered labs, encouraged healthy, low carbohydrate lifestyle and at least 150min/week of exercise, continue on paroxetine 40 mg daily, Abilify 10 mg daily, and hydroxyzine 25 mg as needed for rescue only. He has been needing it about once a day when he is at work. Assessment & Plan (09/04/2020 8:54 AM UTILITY TECH): Patient reiterated no suicidal thoughts at this time; take medication as directed; contact 911 and go to the ER if becomes suicidal; discussed side effects of medication with patient; encouraged healthy diet and exericise; encouraged patient to see a counselor HPI: Condition is improving A&P: Discussed/ordered labs, encouraged healthy, low carbohydrate lifestyle and at least 150min/week of exercise, continue on paroxeting 40mg daily, at last visit we gave abilify 10mg daily, he is using the hydroxyzine 25mg as needed for rescue. He says he uses the hydroxyzine usually about once daily. He has only needed it twice one day recently. Assessment & Plan (08/14/2020 8:33 AM UTILITY TECH): Patient reiterated no suicidal thoughts at this time; take medication as directed; contact 911 and go to the ER if becomes suicidal; discussed side effects of medication with patient; encouraged healthy diet and exericise; encouraged patient to see a counselor HPI: Condition is worsening A&P: Discussed/ordered labs, encouraged healthy, low carbohydrate lifestyle and at least 150min/week of exercise, start on abilify 10mg daily to be a mood stabilizer. Continue on the paroxetine 40mg daily. Pt has been using the hydroxyzine 25mg 1- 2 times daily. When he feels like he does right now he would normally take the hydroxyzine. It works well for him within about 10 min. Continue on this medication plan. We will need to follow up in a few weeks Assessment & Plan (05/13/2020 8:47 AM CDT): Patient reiterated no suicidal thoughts at this time; take medication as directed; contact 911 and go to the ER if becomes suicidal; discussed side effects of medication with patient; encouraged healthy diet and exericise; encouraged patient to see a counselor Discussed/ordered labs, Condition is stable encouraged healthy, low carbohydrate lifestyle and at least 150min/week of exercise, continue on paxil 40mg daily. His anxiety is still high. His hydroxyzine 25mg as needed only. He mostly needs this before he goes to work. Please consider the hydroxyzine as a rescue only medication. If needing it more than 2 x day, please contact office. Assessment & Plan (11/12/2019 7:47 AM UTILITY TECH): Patient reiterated no suicidal thoughts at this time; take medication as directed; contact 911 and go to the ER if becomes suicidal; discussed side effects of medication with patient; encouraged healthy diet and exericise; encouraged patient to see a counselor Discussed/ordered labs, Condition is stable, encouraged healthy, low carbohydrate lifestyle and at least 150min/week of exercise, continue seeing psychiatrist Dr. Gibson. Patient currently taking treatment plan Paroxetine 40mg daily, lorazepam 0.5mg as needed-usually about 1-2 times/wk Discussed with patient that we will continue on paroxetine 40mg daily, swap out the lorazepam 0.5mg and switch to hydroxyzine 25mg as needed for anxiety Pt has tried buspirone without any help Vitamin D deficiency 08/29/2018 Assessment & Plan (02/27/2025 8:55 AM CDT): -chronic, stable -Discussed/ordered labs -continue on vitamin D3 5,000 units daily Assessment & Plan (08/22/2024 7:47 AM UTILITY TECH): -chronic, stable -Discussed/ordered labs -continue on vitamin D3 5000 units daily Assessment & Plan (02/20/2024 1:36 PM CDT): -chronic, stable -Discussed/ordered labs -continue on vitamin D3 5000 units daily Assessment & Plan (09/30/2023 7:10 AM UTILITY TECH): -chronic, stable -Discussed/ordered labs -continue on vitamin D3 5000 units daily Assessment & Plan (01/27/2023 7:04 AM CDT): HPI: Condition is stable A&P: Discussed/ordered labs, encouraged healthy, low carbohydrate lifestyle and at least 150min/week of exercise, continue on vitamin D3 5000 units daily Assessment & Plan (07/22/2022 8:41 AM CDT): HPI: Condition is stable A&P: Discussed/ordered labs, encouraged healthy, low carbohydrate lifestyle and at least 150min/week of exercise, continue on vitamin D3 5000 units daily Assessment & Plan (01/20/2022 7:03 AM CDT): HPI: Condition is stable A&P: Discussed/ordered labs, encouraged healthy, low carbohydrate lifestyle and at least 150min/week of exercise, continue on Vitamin D3 5000 units weekly Assessment & Plan (07/22/2021 7:37 AM CDT): HPI: Condition is stable A&P: Discussed/ordered labs, encouraged healthy, low carbohydrate lifestyle and at least 150min/week of exercise, continue on Vitamin D3 5000 units weekly Assessment & Plan (10/22/2020 8:14 AM UTILITY TECH): Pt has been having trouble getting the 71620 units from pharmacy. We will have pt take over the counter vit d3 5000 units every week. Assessment & Plan (08/14/2020 8:07 AM UTILITY TECH): HPI: Condition is stable A&P: Discussed/ordered labs, encouraged healthy, low carbohydrate lifestyle and at least 150min/week of exercise, continue on vit d3 85582 unit every 2 wks instead of weekly He states he is not sure if he has been taking it once a week or twice a week. Assessment & Plan (05/13/2020 8:45 AM CDT): Pt stopped his vit d 4 days ago Vit d on 05/01/2020 was 81 Decrease [place] vit d3 00310 units to 2xmo instead of weekly Assessment & Plan (11/12/2019 7:41 AM UTILITY TECH): Pt was found to have low Vit D in 2018. Pt is taking vit d3 45957 units weekly at this time. We will order labs. Anger 02/16/2018 Assessment & Plan (02/22/2024 9:52 AM CDT): -chronic, stable -continue on Abilify 10 mg daily, paroxetine 40 mg daily, and hydroxyzine 25 mg daily as needed for anxiety Patient reiterated no suicidal thoughts at this time; take medication as directed; contact 911 and go to the ER if becomes suicidal; discussed side effects of medication with patient; encouraged healthy diet and exericise; encouraged patient to see a counselor Assessment & Plan (07/20/2022 7:37 AM CDT): Patient reiterated no suicidal thoughts at this time; take medication as directed; contact 911 and go to the ER if becomes suicidal; discussed side effects of medication with patient; encouraged healthy diet and exericise; encouraged patient to see a counselor HPI: Condition is stable A&P: Discussed/ordered labs, encouraged healthy, low carbohydrate lifestyle and at least 150min/week of exercise, continue on Abilify 10 mg daily, hydroxyzine 25 mg daily as needed, paroxetine 40 mg daily Encourage patient to see counselor Assessment & Plan (01/20/2022 7:03 AM CDT): Patient reiterated no suicidal thoughts at this time; take medication as directed; contact 911 and go to the ER if becomes suicidal; discussed side effects of medication with patient; encouraged healthy diet and exericise; encouraged patient to see a counselor HPI: Condition is stable A&P: Discussed/ordered labs, encouraged healthy, low carbohydrate lifestyle and at least 150min/week of exercise, continue on Abilify 10 mg daily, hydroxyzine 25mg As needed, paroxetine 40 mg daily Assessment & Plan (07/22/2021 7:37 AM CDT): Patient reiterated no suicidal thoughts at this time; take medication as directed; contact 911 and go to the ER if becomes suicidal; discussed side effects of medication with patient; encouraged healthy diet and exericise; encouraged patient to see a counselor HPI: Condition is stable A&P: Discussed/ordered labs, encouraged healthy, low carbohydrate lifestyle and at least 150min/week of exercise, continue on Abilify 10 mg daily, paroxetine 40 mg daily, hydroxyzine 25 mg days he works Assessment & Plan (04/22/2021 9:02 AM CDT): Patient reiterated no suicidal thoughts at this time; take medication as directed; contact 911 and go to the ER if becomes suicidal; discussed side effects of medication with patient; encouraged healthy diet and exericise; encouraged patient to see a counselor HPI: Condition is improving ; doing great. Feels like he is under good control. Things are good at work and home. A&P: Discussed/ordered labs, encouraged healthy, low carbohydrate lifestyle and at least 150min/week of exercise, continue on abilify 10mg daily, paroxetine 40mg daily, hydroxyzine 25mg on the days he works. Assessment & Plan (03/11/2021 8:15 AM CDT): Patient reiterated no suicidal thoughts at this time; take medication as directed; contact 911 and go to the ER if becomes suicidal; discussed side effects of medication with patient; encouraged healthy diet and exericise; encouraged patient to see a counselor HPI: Condition is Improving, but not at goal. A&P: Discussed/ordered labs, encouraged healthy, low carbohydrate lifestyle and at least 150min/week of exercise, continue on Apriprazole 20 mg daily, hydroxyzine 25 mg once daily, and paroxetine 40 mg daily. Did not follow-up with counselor, recommended meeting with a counselor again. Assessment & Plan (01/21/2021 9:05 AM CDT): Patient reiterated no suicidal thoughts at this time; take medication as directed; contact 911 and go to the ER if becomes suicidal; discussed side effects of medication with patient; encouraged healthy diet and exericise; encouraged patient to see a counselor HPI: Condition is worsening A&P: Discussed/ordered labs, encouraged healthy, low carbohydrate lifestyle and at least 150min/week of exercise, continue on paroxetine 40 mg daily, hydroxyzine 25 mg once daily. We will increase the abilify to 20mg daily. Recommend seeing counselor, list given. Assessment & Plan (10/22/2020 8:16 AM UTILITY TECH): Patient reiterated no suicidal thoughts at this time; take medication as directed; contact 911 and go to the ER if becomes suicidal; discussed side effects of medication with patient; encouraged healthy diet and exericise; encouraged patient to see a counselor HPI: Condition is improving A&P: Discussed/ordered labs, encouraged healthy, low carbohydrate lifestyle and at least 150min/week of exercise, continue on paroxetine 40 mg daily, Abilify 10 mg daily, and hydroxyzine 25 mg as needed for rescue only. He has been needing it about once a day when he is at work. Assessment & Plan (09/04/2020 9:04 AM UTILITY TECH): Patient reiterated no suicidal thoughts at this time; take medication as directed; contact 911 and go to the ER if becomes suicidal; discussed side effects of medication with patient; encouraged healthy diet and exericise; encouraged patient to see a counselor HPI: Condition is improving A&P: Discussed/ordered labs, encouraged healthy, low carbohydrate lifestyle and at least 150min/week of exercise, continue on paroxeting 40mg daily, at last visit we gave abilify 10mg daily, he is using the hydroxyzine 25mg as needed for rescue. He says he uses the hydroxyzine usually about once daily. He has only needed it twice one day recently. Assessment & Plan (08/14/2020 8:33 AM UTILITY TECH): Patient reiterated no suicidal thoughts at this time; take medication as directed; contact 911 and go to the ER if becomes suicidal; discussed side effects of medication with patient; encouraged healthy diet and exericise; encouraged patient to see a counselor HPI: Condition is worsening A&P: Discussed/ordered labs, encouraged healthy, low carbohydrate lifestyle and at least 150min/week of exercise, start on abilify 10mg daily to be a mood stabilizer. Continue on the paroxetine 40mg daily. Pt has been using the hydroxyzine 25mg 1- 2 times daily. When he feels like he does right now he would normally take the hydroxyzine. It works well for him within about 10 min. Continue on this medication plan. We will need to follow up in a few weeks Class 3 severe obesity with serious comorbidity and body mass index (BMI) of 45.0 to 49.9 in adult 02/16/2018 Assessment & Plan (04/22/2025 8:50 AM CDT): -chronic, not at/near goal goal BMI <30 Healthy, high-protein, lower carbohydrate, lower fat lifestyle and exercise for 150min/week recommended Recommend tracking everything you put in your mouth on an benedicto like [employer] Hand Measurements: A fist or cupped hand = 1 cup 1 cup = 1 -2 servings of fruit juice 1 oz. of cold cereal 2 oz. of cooked cereal, rice or pasta 8 oz. of milk or yogurt A thumb = 1 oz. of cheese Consuming low-fat cheese helps you meet the required servings from the milk, yogurt and cheese group. 1 oz. of low-fat cheese counts as 8 oz. of milk or yogurt. Handful = 1-2 oz. of snack food Thumb tip = 1 teaspoon Keep high-fat foods, such as peanut butter and mayonnaise, at a minimum. One teaspoon is equal to the end of your thumb, from the knuckle up. Three teaspoons equals 1 tablespoon. Palm = 3 oz. of meat Choose lean poultry, fish, shellfish and beef. One palm size portion equals 3 oz. for an adult and 1 -2 oz. for a child under 5. 1 tennis ball or a fist= 1/2 cup of fruit and vegetables Healthy diets include a variety of colorful fruits and vegetables every day. The secret to serving size is in your hand. Snacking can add up. Because hand sizes vary, compare your fist size to an actual measuring cup. Assessment & Plan (02/27/2025 9:07 AM CDT): -chronic, not at/near goal goal BMI <30 Healthy, high-protein, lower carbohydrate, lower fat lifestyle and exercise for 150min/week recommended Recommend tracking everything you put in your mouth on an benedicto like [employer] - start on zepbound 2.5mg weekly x 4 wks, then increase to 5 mg Discussed the importance of site rotation, stay 2 fingerbreadths away from belly button. Discussed the importance of cutting meals in half starting after first dose. Discussed that this will slow gastric emptying which will make pt feel full longer and fill up faster. Discussed the one bite or one gulp too much scenario that can increase nausea/vomiting. Listen to your body. Reiterated that pt does not have family or personal history of medullary thyroid cancer or pancreatitis. -Follow up in 3 months or sooner as needed Hand Measurements: A fist or cupped hand = 1 cup 1 cup = 1 -2 servings of fruit juice 1 oz. of cold cereal 2 oz. of cooked cereal, rice or pasta 8 oz. of milk or yogurt A thumb = 1 oz. of cheese Consuming low-fat cheese helps you meet the required servings from the milk, yogurt and cheese group. 1 oz. of low-fat cheese counts as 8 oz. of milk or yogurt. Handful = 1-2 oz. of snack food Thumb tip = 1 teaspoon Keep high-fat foods, such as peanut butter and mayonnaise, at a minimum. One teaspoon is equal to the end of your thumb, from the knuckle up. Three teaspoons equals 1 tablespoon. Palm = 3 oz. of meat Choose lean poultry, fish, shellfish and beef. One palm size portion equals 3 oz. for an adult and 1 -2 oz. for a child under 5. 1 tennis ball or a fist= 1/2 cup of fruit and vegetables Healthy diets include a variety of colorful fruits and vegetables every day. The secret to serving size is in your hand. Snacking can add up. Because hand sizes vary, compare your fist size to an actual measuring cup. Assessment & Plan (08/22/2024 9:28 AM UTILITY TECH): -chronic, improving, but not at goal goal BMI <30 Healthy, high-protein, lower carbohydrate, lower fat lifestyle and exercise for 150min/week recommended Recommend tracking everything you put in your mouth on an benedicto like [employer] -Advised patient I will check with my staff to see if we ever received the PA for the K[facility] -Patient is currently taking semaglutide 0.5 mg weekly through [facility] Hand Measurements: A fist or cupped hand = 1 cup 1 cup = 1 -2 servings of fruit juice 1 oz. of cold cereal 2 oz. of cooked cereal, rice or pasta 8 oz. of milk or yogurt A thumb = 1 oz. of cheese Consuming low-fat cheese helps you meet the required servings from the milk, yogurt and cheese group. 1 oz. of low-fat cheese counts as 8 oz. of milk or yogurt. Handful = 1-2 oz. of snack food Thumb tip = 1 teaspoon Keep high-fat foods, such as peanut butter and mayonnaise, at a minimum. One teaspoon is equal to the end of your thumb, from the knuckle up. Three teaspoons equals 1 tablespoon. Palm = 3 oz. of meat Choose lean poultry, fish, shellfish and beef. One palm size portion equals 3 oz. for an adult and 1 -2 oz. for a child under 5. 1 tennis ball or a fist= 1/2 cup of fruit and vegetables Healthy diets include a variety of colorful fruits and vegetables every day. The secret to serving size is in your hand. Snacking can add up. Because hand sizes vary, compare your fist size to an actual measuring cup. Assessment & Plan (02/22/2024 9:54 AM CDT): -chronic, not at/near goal goal BMI <30 Healthy, high-protein, lower carbohydrate, lower fat lifestyle and exercise for 150min/week recommended Recommend tracking everything you put in your mouth on an benedicto like [employer] -patient is interested on starting on an injectable medication for weight loss. Advised patient to call the insurance company and see if they will cover any of the following medications for weight loss: Ozempic, wegovy, mounjaro, or zepbound. Advised patient to let me know if they will cover any of these medications and I can send in. Patient declines personal/family history pancreatitis or medullary thyroid cancer. Hand Measurements: A fist or cupped hand = 1 cup 1 cup = 1 -2 servings of fruit juice 1 oz. of cold cereal 2 oz. of cooked cereal, rice or pasta 8 oz. of milk or yogurt A thumb = 1 oz. of cheese Consuming low-fat cheese helps you meet the required servings from the milk, yogurt and cheese group. 1 oz. of low-fat cheese counts as 8 oz. of milk or yogurt. Handful = 1-2 oz. of snack food Thumb tip = 1 teaspoon Keep high-fat foods, such as peanut butter and mayonnaise, at a minimum. One teaspoon is equal to the end of your thumb, from the knuckle up. Three teaspoons equals 1 tablespoon. Palm = 3 oz. of meat Choose lean poultry, fish, shellfish and beef. One palm size portion equals 3 oz. for an adult and 1 -2 oz. for a child under 5. 1 tennis ball or a fist= 1/2 cup of fruit and vegetables Healthy diets include a variety of colorful fruits and vegetables every day. The secret to serving size is in your hand. Snacking can add up. Because hand sizes vary, compare your fist size to an actual measuring cup. Assessment & Plan (10/12/2023 1:31 PM UTILITY TECH): HPI: Condition is not at/near goal goal BMI <30 A&P: Healthy, high-protein, lower carbohydrate, lower fat lifestyle and exercise for 150min/week recommended Recommend tracking everything you put in your mouth on an benedicto like [employer] Hand Measurements: A fist or cupped hand = 1 cup 1 cup = 1 -2 servings of fruit juice 1 oz. of cold cereal 2 oz. of cooked cereal, rice or pasta 8 oz. of milk or yogurt A thumb = 1 oz. of cheese Consuming low-fat cheese helps you meet the required servings from the milk, yogurt and cheese group. 1 oz. of low-fat cheese counts as 8 oz. of milk or yogurt. Handful = 1-2 oz. of snack food Thumb tip = 1 teaspoon Keep high-fat foods, such as peanut butter and mayonnaise, at a minimum. One teaspoon is equal to the end of your thumb, from the knuckle up. Three teaspoons equals 1 tablespoon. Palm = 3 oz. of meat Choose lean poultry, fish, shellfish and beef. One palm size portion equals 3 oz. for an adult and 1 -2 oz. for a child under 5. 1 tennis ball or a fist= 1/2 cup of fruit and vegetables Healthy diets include a variety of colorful fruits and vegetables every day. The secret to serving size is in your hand. Snacking can add up. Because hand sizes vary, compare your fist size to an actual measuring cup. Assessment & Plan (09/30/2023 7:09 AM UTILITY TECH): HPI: Condition is not at/near goal goal BMI <30 A&P: Healthy, high-protein, lower carbohydrate, lower fat lifestyle and exercise for 150min/week recommended Recommend tracking everything you put in your mouth on an benedicto like [employer] Hand Measurements: A fist or cupped hand = 1 cup 1 cup = 1 -2 servings of fruit juice 1 oz. of cold cereal 2 oz. of cooked cereal, rice or pasta 8 oz. of milk or yogurt A thumb = 1 oz. of cheese Consuming low-fat cheese helps you meet the required servings from the milk, yogurt and cheese group. 1 oz. of low-fat cheese counts as 8 oz. of milk or yogurt. Handful = 1-2 oz. of snack food Thumb tip = 1 teaspoon Keep high-fat foods, such as peanut butter and mayonnaise, at a minimum. One teaspoon is equal to the end of your thumb, from the knuckle up. Three teaspoons equals 1 tablespoon. Palm = 3 oz. of meat Choose lean poultry, fish, shellfish and beef. One palm size portion equals 3 oz. for an adult and 1 -2 oz. for a child under 5. 1 tennis ball or a fist= 1/2 cup of fruit and vegetables Healthy diets include a variety of colorful fruits and vegetables every day. The secret to serving size is in your hand. Snacking can add up. Because hand sizes vary, compare your fist size to an actual measuring cup. Assessment & Plan (05/13/2023 8:27 AM CDT): HPI: Condition is not at/near goal goal BMI <30 A&P: Healthy, high-protein, lower carbohydrate, lower fat lifestyle and exercise for 150min/week recommended Recommend tracking everything you put in your mouth on an benedicto like [employer] Hand Measurements: A fist or cupped hand = 1 cup 1 cup = 1 -2 servings of fruit juice 1 oz. of cold cereal 2 oz. of cooked cereal, rice or pasta 8 oz. of milk or yogurt A thumb = 1 oz. of cheese Consuming low-fat cheese helps you meet the required servings from the milk, yogurt and cheese group. 1 oz. of low-fat cheese counts as 8 oz. of milk or yogurt. Handful = 1-2 oz. of snack food Thumb tip = 1 teaspoon Keep high-fat foods, such as peanut butter and mayonnaise, at a minimum. One teaspoon is equal to the end of your thumb, from the knuckle up. Three teaspoons equals 1 tablespoon. Palm = 3 oz. of meat Choose lean poultry, fish, shellfish and beef. One palm size portion equals 3 oz. for an adult and 1 -2 oz. for a child under 5. 1 tennis ball or a fist= 1/2 cup of fruit and vegetables Healthy diets include a variety of colorful fruits and vegetables every day. The secret to serving size is in your hand. Snacking can add up. Because hand sizes vary, compare your fist size to an actual measuring cup. Assessment & Plan (04/13/2023 12:47 PM CDT): HPI: Condition is not at/near goal goal BMI <30 A&P: Healthy, high-protein, lower carbohydrate, lower fat lifestyle and exercise for 150min/week recommended Recommend tracking everything you put in your mouth on an benedicto like [employer] Hand Measurements: A fist or cupped hand = 1 cup 1 cup = 1 -2 servings of fruit juice 1 oz. of cold cereal 2 oz. of cooked cereal, rice or pasta 8 oz. of milk or yogurt A thumb = 1 oz. of cheese Consuming low-fat cheese helps you meet the required servings from the milk, yogurt and cheese group. 1 oz. of low-fat cheese counts as 8 oz. of milk or yogurt. Handful = 1-2 oz. of snack food Thumb tip = 1 teaspoon Keep high-fat foods, such as peanut butter and mayonnaise, at a minimum. One teaspoon is equal to the end of your thumb, from the knuckle up. Three teaspoons equals 1 tablespoon. Palm = 3 oz. of meat Choose lean poultry, fish, shellfish and beef. One palm size portion equals 3 oz. for an adult and 1 -2 oz. for a child under 5. 1 tennis ball or a fist= 1/2 cup of fruit and vegetables Healthy diets include a variety of colorful fruits and vegetables every day. The secret to serving size is in your hand. Snacking can add up. Because hand sizes vary, compare your fist size to an actual measuring cup. Assessment & Plan (03/16/2023 12:56 PM CDT): Wt Readings from Last 3 Encounters: 03/15/23 124.3 kg (274 lb) 01/27/23 125.4 kg (276 lb 6.4 oz) 01/26/23 125.2 kg (276 lb) Body mass index is 42.91 kg/m . - chronic condition, not at goal - BMI Follow-up includes: nutrition counseling, exercise counseling and education provided - comorbidities - prediabetes, PK Assessment & Plan (01/27/2023 7:04 AM CDT): HPI: Condition is not at/near goal goal BMI <30 A&P: Healthy, high-protein, lower carbohydrate, lower fat lifestyle and exercise for 150min/week recommended Recommend tracking everything you put in your mouth on an benedicto like [employer] Hand Measurements: A fist or cupped hand = 1 cup 1 cup = 1 -2 servings of fruit juice 1 oz. of cold cereal 2 oz. of cooked cereal, rice or pasta 8 oz. of milk or yogurt A thumb = 1 oz. of cheese Consuming low-fat cheese helps you meet the required servings from the milk, yogurt and cheese group. 1 oz. of low-fat cheese counts as 8 oz. of milk or yogurt. Handful = 1-2 oz. of snack food Thumb tip = 1 teaspoon Keep high-fat foods, such as peanut butter and mayonnaise, at a minimum. One teaspoon is equal to the end of your thumb, from the knuckle up. Three teaspoons equals 1 tablespoon. Palm = 3 oz. of meat Choose lean poultry, fish, shellfish and beef. One palm size portion equals 3 oz. for an adult and 1 -2 oz. for a child under 5. 1 tennis ball or a fist= 1/2 cup of fruit and vegetables Healthy diets include a variety of colorful fruits and vegetables every day. The secret to serving size is in your hand. Snacking can add up. Because hand sizes vary, compare your fist size to an actual measuring cup. Assessment & Plan (07/20/2022 7:37 AM CDT): HPI: Condition is not at/near goal goal BMI <30 A&P: Healthy, high-protein, lower carbohydrate, lower fat lifestyle and exercise for 150min/week recommended Recommend tracking everything you put in your mouth on an benedicto like [employer] Lower carb substitutions: [employer] carries a zero net carb bread If you are looking for whole potatoes, like to use in soup or new potato shape/flavor, radishes are a great replacement If you are looking for mashed potatoes, riced cauliflower in the frozen bag section are a great replacement For pasta, try using zucchini noodles, lay them out on a cookie sheet and pat dry with a tea towel to try to remove as much moisture as possible. Heat your pasta sauce on the stove and put the noodles in for 30-45 seconds. If you leave them in much longer they will become mushy Isabella and/or coconut flour instead of regular flour For pizza dough, try fathead pizza dough recipe online. To get a crispy crust, bake on one side for 8-12 min, then flip over and bake on the other side for 8-12 min, then put toppings on and bake until the cheese on top of pizza melts chaffles recipe online For ice cream, try the brand Enlightened To replace coffee creamer and make it low carb, use heavy creamer with sugar free Torani sweetener For chips, try Whisps or pork rinds For yogurt, try [employer] italian yogurt Use [employer] for recipe ideas. Type in low carb... Hand Measurements: A fist or cupped hand = 1 cup 1 cup = 1 -2 servings of fruit juice 1 oz. of cold cereal 2 oz. of cooked cereal, rice or pasta 8 oz. of milk or yogurt A thumb = 1 oz. of cheese Consuming low-fat cheese helps you meet the required servings from the milk, yogurt and cheese group. 1 oz. of low-fat cheese counts as 8 oz. of milk or yogurt. Handful = 1-2 oz. of snack food Thumb tip = 1 teaspoon Keep high-fat foods, such as peanut butter and mayonnaise, at a minimum. One teaspoon is equal to the end of your thumb, from the knuckle up. Three teaspoons equals 1 tablespoon. Palm = 3 oz. of meat Choose lean poultry, fish, shellfish and beef. One palm size portion equals 3 oz. for an adult and 1 -2 oz. for a child under 5. 1 tennis ball or a fist= 1/2 cup of fruit and vegetables Healthy diets include a variety of colorful fruits and vegetables every day. The secret to serving size is in your hand. Snacking can add up. Remember, 1 handful equals 1 oz. of nuts and small candies. For chips and pretzels, 2 handfuls equals 1 oz. Because hand sizes vary, compare your fist size to an actual measuring cup. Assessment & Plan (01/20/2022 7:03 AM CDT): HPI: Condition is not at/near goal goal BMI <30 A&P: Healthy, high-protein, lower carbohydrate, lower fat lifestyle and exercise for 150min/week recommended Substitutions: Recommend tracking everything you put in your mouth on an benedicto like [employer] or [employer] carries a zero net carb bread If you are looking for whole potatoes, like to use in soup or new potato shape/flavor, radishes are a great replacement If you are looking for mashed potatoes, riced cauliflower in the frozen bag section are a great replacement For pasta, try using zucchini noodles, lay them out on a cookie sheet and pat dry with a tea towel to try to remove as much moisture as possible. Heat your pasta sauce on the stove and put the noodles in for 30-45 seconds. If you leave them in much longer they will become mushy Isabella and/or coconut flour instead of regular flour For pizza dough, try fathead pizza dough recipe online. To get a crispy crust, bake on one side for 8-12 min, then flip over and bake on the other side for 8-12 min, then put toppings on and bake until the cheese on top of pizza melts chaffles recipe online For ice cream, try the brand Enlightened To replace coffee creamer and make it low carb, use heavy creamer with sugar free Torani sweetener For chips, try Whisps or pork rinds For yogurt, try [employer] italian yogurt Use [employer] for recipe ideas. Type in low carb... Assessment & Plan (07/22/2021 7:37 AM CDT): HPI: Condition is not at/near goal goal BMI <30 A&P: Healthy, high-protein, lower carbohydrate, lower fat lifestyle and exercise for 150min/week recommended Substitutions: Recommend tracking everything you put in your mouth on an benedicto like [employer] or [employer] carries a zero net carb bread If you are looking for whole potatoes, like to use in soup or new potato shape/flavor, radishes are a great replacement If you are looking for mashed potatoes, riced cauliflower in the frozen bag section are a great replacement For pasta, try using zucchini noodles, lay them out on a cookie sheet and pat dry with a tea towel to try to remove as much moisture as possible. Heat your pasta sauce on the stove and put the noodles in for 30-45 seconds. If you leave them in much longer they will become mushy Isabella and/or coconut flour instead of regular flour For pizza dough, try [employer]head pizza dough recipe online. To get a crispy crust, bake on one side for 8-12 min, then flip over and bake on the other side for 8-12 min, then put toppings on and bake until the cheese on top of pizza melts chaffles recipe online For ice cream, try the brand Enlightened To replace coffee creamer and make it low carb, use heavy creamer with sugar free Torani sweetener For chips, try Whisps or pork rinds For yogurt, try [employer] italian yogurt Use Pinterest for recipe ideas. Type in low carb... Assessment & Plan (04/22/2021 8:59 AM CDT): HPI: Condition is not at/near goal goal BMI <30 A&P: Healthy, high-protein, lower carbohydrate, lower fat lifestyle and exercise for 150min/week recommended Substitutions: Recommend tracking everything you put in your mouth on an benedicto like [employer] or [employer] carries a zero net carb bread If you are looking for whole potatoes, like to use in soup or new potato shape/flavor, radishes are a great replacement If you are looking for mashed potatoes, riced cauliflower in the frozen bag section are a great replacement For pasta, try using zucchini noodles, lay them out on a cookie sheet and pat dry with a tea towel to try to remove as much moisture as possible. Heat your pasta sauce on the stove and put the noodles in for 30-45 seconds. If you leave them in much longer they will become mushy Isabella and/or coconut flour instead of regular flour For pizza dough, try [employer]head pizza dough recipe online. To get a crispy crust, bake on one side for 8-12 min, then flip over and bake on the other side for 8-12 min, then put toppings on and bake until the cheese on top of pizza melts chaffles recipe online For ice cream, try the brand Enlightened To replace coffee creamer and make it low carb, use heavy creamer with sugar free Torani sweetener For chips, try Whisps or pork rinds For yogurt, try [employer] italian yogurt Use Pinterest for recipe ideas. Type in low carb... Assessment & Plan (03/11/2021 7:05 AM CDT): HPI: Condition is not at/near goal goal BMI <30 A&P: Healthy, high-protein, lower carbohydrate, lower fat lifestyle and exercise for 150min/week recommended Substitutions: Recommend tracking everything you put in your mouth on an benedicto like [employer] or [employer] carries a zero net carb bread If you are looking for whole potatoes, like to use in soup or new potato shape/flavor, radishes are a great replacement If you are looking for mashed potatoes, riced cauliflower in the frozen bag section are a great replacement For pasta, try using zucchini noodles, lay them out on a cookie sheet and pat dry with a tea towel to try to remove as much moisture as possible. Heat your pasta sauce on the stove and put the noodles in for 30-45 seconds. If you leave them in much longer they will become mushy Isabella and/or coconut flour instead of regular flour For pizza dough, try [employer]head pizza dough recipe online. To get a crispy crust, bake on one side for 8-12 min, then flip over and bake on the other side for 8-12 min, then put toppings on and bake until the cheese on top of pizza melts chaffles recipe online For ice cream, try the brand Enlightened To replace coffee creamer and make it low carb, use heavy creamer with sugar free Torani sweetener For chips, try Whisps or pork rinds For yogurt, try [employer] italian yogurt Use Pinterest for recipe ideas. Type in low carb... Assessment & Plan (01/21/2021 7:14 AM CDT): HPI: Condition is stable A&P: Healthy, low carbohydrate lifestyle and exercise for 150min/week recommended Substitutions: Recommend tracking everything you put in your mouth on an benedicto like [employer] or [employer] carries a zero net carb bread If you are looking for whole potatoes, like to use in soup or new potato shape/flavor, radishes are a great replacement If you are looking for mashed potatoes, riced cauliflower in the frozen bag section are a great replacement For pasta, try using zucchini noodles, lay them out on a cookie sheet and pat dry with a tea towel to try to remove as much moisture as possible. Heat your pasta sauce on the stove and put the noodles in for 30-45 seconds. If you leave them in much longer they will become mushy Isabella and/or coconut flour instead of regular flour For pizza dough, try [employer]head pizza dough recipe online. To get a crispy crust, bake on one side for 8-12 min, then flip over and bake on the other side for 8-12 min, then put toppings on and bake until the cheese on top of pizza melts chaffles recipe online For ice cream, try the brand Enlightened To replace coffee creamer and make it low carb, use heavy creamer with sugar free Torani sweetener For chips, try Whisps or pork rinds For yogurt, try [employer] italian yogurt Use Pinterest for recipe ideas. Type in low carb... Assessment & Plan (10/22/2020 8:09 AM UTILITY TECH): HPI: Condition is stable A&P: Healthy, low carbohydrate lifestyle and exercise for 150min/week recommended Download the [employer] benedicto to start tracking everything you put in your mouth. Substitutions: [employer] carries a zero net carb bread If you are looking for whole potatoes, like to use in soup or new potato shape/flavor, radishes are a great replacement If you are looking for mashed potatoes, riced cauliflower in the frozen bag section are a great replacement For pasta, try using zucchini noodles, lay them out on a cookie sheet and pat dry with a tea towel to try to remove as much moisture as possible. Heat your pasta sauce on the stove and put the noodles in for 30-45 seconds. If you leave them in much longer they will become mushy Isabella and/or coconut flour instead of regular flour For pizza dough, try [employer]head pizza dough recipe online. To get a crispy crust, bake on one side for 8-12 min, then flip over and bake on the other side for 8-12 min, then put toppings on and bake until the cheese on top of pizza melts chaffles recipe online For ice cream, try the brand Enlpabloened To replace coffee creamer and make it low carb, use heavy creamer with sugar free Torani sweetener For chips, try Whisps For yogurt, try Two Good italian yogurt Use Pinterest for recipe ideas. Type in low carb... Assessment & Plan (09/04/2020 9:03 AM UTILITY TECH): HPI: Condition is stable A&P: Healthy, low carbohydrate lifestyle and exercise for 150min/week recommended Substitutions: [employer] carries a zero net carb bread If you are looking for whole potatoes, like to use in soup or new potato shape/flavor, radishes are a great replacement If you are looking for mashed potatoes, riced cauliflower in the frozen bag section are a great replacement For pasta, try using zucchini noodles, lay them out on a cookie sheet and pat dry with a tea towel to try to remove as much moisture as possible. Heat your pasta sauce on the stove and put the noodles in for 30-45 seconds. If you leave them in much longer they will become mushy Isabella and/or coconut flour instead of regular flour For pizza dough, try fathead pizza dough recipe online. To get a crispy crust, bake on one side for 8-12 min, then flip over and bake on the other side for 8-12 min, then put toppings on and bake until the cheese on top of pizza melts chaffles recipe online For ice cream, try the brand Enlpabloened Use Pinterest for recipe ideas. Type in low carb... Assessment & Plan (08/13/2020 4:11 PM UTILITY TECH): HPI: Condition is stable A&P: Healthy, low carbohydrate lifestyle and exercise for 150min/week recommended Substitutions: [employer] carries a zero net carb bread If you are looking for whole potatoes, like to use in soup or new potato shape/flavor, radishes are a great replacement If you are looking for mashed potatoes, riced cauliflower in the frozen bag section are a great replacement For pasta, try using zucchini noodles, lay them out on a cookie sheet and pat dry with a tea towel to try to remove as much moisture as possible. Heat your pasta sauce on the stove and put the noodles in for 30-45 seconds. If you leave them in much longer they will become mushy Isabella and/or coconut flour instead of regular flour For pizza dough, try fathead pizza dough recipe online. To get a crispy crust, bake on one side for 8-12 min, then flip over and bake on the other side for 8-12 min, then put toppings on and bake until the cheese on top of pizza melts chaffles recipe online For ice cream, try the brand Enlightened Use Pinterest for recipe ideas. Type in low carb... Assessment & Plan (05/12/2020 8:30 PM CDT): Healthy, low carbohydrate lifestyle and exercise for 150min/week recommended Substitutions: [employer] carries a zero net carb bread If you are looking for whole potatoes, like to use in soup or new potato shape/flavor, radishes are a great replacement If you are looking for mashed potatoes, riced cauliflower in the frozen bag section are a great replacement For pasta, try using zucchini noodles, lay them out on a cookie sheet and pat dry with a tea towel to try to remove as much moisture as possible. Heat your pasta sauce on the stove and put the noodles in for 30-45 seconds. If you leave them in much longer they will become mushy Isabella and/or coconut flour instead of regular flour For pizza dough, try fathead pizza dough recipe online. To get a crispy crust, bake on one side for 8-12 min, then flip over and bake on the other side for 8-12 min, then put toppings on and bake until the cheese on top of pizza melts chaffles recipe online For ice cream, try the brand Enlightened Use Pinterest for recipe ideas. Type in low carb... Assessment & Plan (11/11/2019 8:55 PM UTILITY TECH): Healthy, low carbohydrate lifestyle and exercise for 150min/week recommended Assessment & Plan (02/16/2018 8:08 AM CDT): Obesity is improving with lifestyle modifications. Discussed the patient's BMI. The BMI is above average; BMI management plan is completed. General weight loss/lifestyle modification strategies discussed (elicit support from others; identify saboteurs; non-food rewards, etc). Family history of premature CAD 02/14/2017 Assessment & Plan (07/20/2022 7:35 AM CDT): HPI: Condition is stable A&P: Discussed/ordered labs, encouraged healthy, low carbohydrate lifestyle and at least 150min/week of exercise Assessment & Plan (01/20/2022 6:59 AM CDT): HPI: Condition is stable A&P: Discussed/ordered labs, encouraged healthy, low carbohydrate lifestyle and at least 150min/week of exercise Assessment & Plan (07/22/2021 7:33 AM CDT): HPI: Condition is stable A&P: Discussed/ordered labs, encouraged healthy, low carbohydrate lifestyle and at least 150min/week of exercise Anxiety 06/21/2013 Assessment & Plan (04/22/2025 8:50 AM CDT): -chronic, stable -continue on Abilify 10 mg daily, paroxetine 40 and 10 mg daily, and hydroxyzine 25 mg daily as needed for anxiety -Follow up in 3 months or sooner as needed Patient reiterated no suicidal thoughts at this time; take medication as directed; contact 911 and go to the ER if becomes suicidal; discussed side effects of medication with patient; encouraged healthy diet and exericise; encouraged patient to see a counselor Assessment & Plan (08/22/2024 7:47 AM UTILITY TECH): -chronic, stable -continue on Abilify 10 mg daily, paroxetine 40 mg daily, and hydroxyzine 25 mg daily as needed for anxiety Patient reiterated no suicidal thoughts at this time; take medication as directed; contact 911 and go to the ER if becomes suicidal; discussed side effects of medication with patient; encouraged healthy diet and exericise; encouraged patient to see a counselor Assessment & Plan (02/22/2024 9:52 AM CDT): -chronic, stable -continue on Abilify 10 mg daily, paroxetine 40 mg daily, and hydroxyzine 25 mg daily as needed for anxiety Patient reiterated no suicidal thoughts at this time; take medication as directed; contact 911 and go to the ER if becomes suicidal; discussed side effects of medication with patient; encouraged healthy diet and exericise; encouraged patient to see a counselor Assessment & Plan (09/30/2023 7:09 AM UTILITY TECH): Patient reiterated no suicidal thoughts at this time; take medication as directed; contact 911 and go to the ER if becomes suicidal; discussed side effects of medication with patient; encouraged healthy diet and exericise; encouraged patient to see a counselor -chronic, stable -continue on Abilify 10 mg daily, paroxetine 40 mg daily, and hydroxyzine 25 mg daily as needed for anxiety Assessment & Plan (05/13/2023 7:02 AM CDT): Patient reiterated no suicidal thoughts at this time; take medication as directed; contact 911 and go to the ER if becomes suicidal; discussed side effects of medication with patient; encouraged healthy diet and exericise; encouraged patient to see a counselor -chronic, improving -continue on Abilify 10 mg daily, paroxetine 40 mg daily, and hydroxyzine 25 mg daily as needed for anxiety Assessment & Plan (04/14/2023 8:04 AM CDT): Patient reiterated no suicidal thoughts at this time; take medication as directed; contact 911 and go to the ER if becomes suicidal; discussed side effects of medication with patient; encouraged healthy diet and exericise; encouraged patient to see a counselor -chronic, improving, but not at goal -increase to Abilify 10 mg daily. Continue on paroxetine 40 mg daily and hydroxyzine 25 mg daily as needed for anxiety. -letter written to excuse patient from work today for this appointment and in case he experiences side effects with increasing the Abilify. -follow up in 4 weeks or sooner as needed Assessment & Plan (01/27/2023 9:05 AM CDT): Patient reiterated no suicidal thoughts at this time; take medication as directed; contact 911 and go to the ER if becomes suicidal; discussed side effects of medication with patient; encouraged healthy diet and exericise; encouraged patient to see a counselor HPI: Condition is stable Patient states he is not been taking his Abilify in the past several months,, but he is feeling well. A&P: Discussed/ordered labs, encouraged healthy, low carbohydrate lifestyle and at least 150min/week of exercise, continue on hydroxyzine 25 mg daily as needed and paroxetine 40 mg daily Assessment & Plan (07/20/2022 7:36 AM CDT): Patient reiterated no suicidal thoughts at this time; take medication as directed; contact 911 and go to the ER if becomes suicidal; discussed side effects of medication with patient; encouraged healthy diet and exericise; encouraged patient to see a counselor HPI: Condition is stable A&P: Discussed/ordered labs, encouraged healthy, low carbohydrate lifestyle and at least 150min/week of exercise, continue on Abilify 10 mg daily, hydroxyzine 25 mg daily as needed, paroxetine 40 mg daily Assessment & Plan (01/20/2022 7:00 AM CDT): Patient reiterated no suicidal thoughts at this time; take medication as directed; contact 911 and go to the ER if becomes suicidal; discussed side effects of medication with patient; encouraged healthy diet and exericise; encouraged patient to see a counselor HPI: Condition is stable A&P: Discussed/ordered labs, encouraged healthy, low carbohydrate lifestyle and at least 150min/week of exercise, continue on Abilify 10 mg daily, hydroxyzine 25mg As needed, paroxetine 40 mg daily Assessment & Plan (07/22/2021 7:33 AM CDT): Patient reiterated no suicidal thoughts at this time; take medication as directed; contact 911 and go to the ER if becomes suicidal; discussed side effects of medication with patient; encouraged healthy diet and exericise; encouraged patient to see a counselor HPI: Condition is stable A&P: Discussed/ordered labs, encouraged healthy, low carbohydrate lifestyle and at least 150min/week of exercise, continue on Abilify 10 mg daily, paroxetine 40 mg daily, hydroxyzine 25 mg days he works Assessment & Plan (04/22/2021 9:01 AM CDT): Patient reiterated no suicidal thoughts at this time; take medication as directed; contact 911 and go to the ER if becomes suicidal; discussed side effects of medication with patient; encouraged healthy diet and exericise; encouraged patient to see a counselor HPI: Condition is improving ; doing great. Feels like he is under good control. Things are good at work and home. A&P: Discussed/ordered labs, encouraged healthy, low carbohydrate lifestyle and at least 150min/week of exercise, continue on abilify 10mg daily, paroxetine 40mg daily, hydroxyzine 25mg on the days he works. Assessment & Plan (03/11/2021 8:15 AM CDT): Patient reiterated no suicidal thoughts at this time; take medication as directed; contact 911 and go to the ER if becomes suicidal; discussed side effects of medication with patient; encouraged healthy diet and exericise; encouraged patient to see a counselor HPI: Condition is Improving, but not at goal. A&P: Discussed/ordered labs, encouraged healthy, low carbohydrate lifestyle and at least 150min/week of exercise, continue on Apriprazole 20 mg daily, hydroxyzine 25 mg once daily, and paroxetine 40 mg daily. Did not follow-up with counselor, recommended meeting with a counselor again. Assessment & Plan (01/21/2021 8:12 AM CDT): Patient reiterated no suicidal thoughts at this time; take medication as directed; contact 911 and go to the ER if becomes suicidal; discussed side effects of medication with patient; encouraged healthy diet and exericise; encouraged patient to see a counselor HPI: Condition is worsening A&P: Discussed/ordered labs, encouraged healthy, low carbohydrate lifestyle and at least 150min/week of exercise, continue on paroxetine 40 mg daily, hydroxyzine 25 mg once daily. We will increase the abilify to 20mg daily. Recommend seeing counselor, list given. Assessment & Plan (10/22/2020 8:09 AM UTILITY TECH): Patient reiterated no suicidal thoughts at this time; take medication as directed; contact 911 and go to the ER if becomes suicidal; discussed side effects of medication with patient; encouraged healthy diet and exericise; encouraged patient to see a counselor HPI: Condition is improving A&P: Discussed/ordered labs, encouraged healthy, low carbohydrate lifestyle and at least 150min/week of exercise, continue on paroxetine 40 mg daily, Abilify 10 mg daily, and hydroxyzine 25 mg as needed for rescue only. He has been needing it about once a day when he is at work. Assessment & Plan (09/04/2020 8:53 AM UTILITY TECH): Patient reiterated no suicidal thoughts at this time; take medication as directed; contact 911 and go to the ER if becomes suicidal; discussed side effects of medication with patient; encouraged healthy diet and exericise; encouraged patient to see a counselor HPI: Condition is improving A&P: Discussed/ordered labs, encouraged healthy, low carbohydrate lifestyle and at least 150min/week of exercise, continue on paroxeting 40mg daily, at last visit we gave abilify 10mg daily, he is using the hydroxyzine 25mg as needed for rescue. He says he uses the hydroxyzine usually about once daily. He has only needed it twice one day recently. Assessment & Plan (08/13/2020 3:43 PM UTILITY TECH): Patient reiterated no suicidal thoughts at this time; take medication as directed; contact 911 and go to the ER if becomes suicidal; discussed side effects of medication with patient; encouraged healthy diet and exericise; encouraged patient to see a counselor HPI: Condition is stable A&P: Discussed/ordered labs, encouraged healthy, low carbohydrate lifestyle and at least 150min/week of exercise, continue on paxil 40mg daily, use the hydroxyzine 25mg as needed for anxiety. Please consider the hydroxyzine as a rescue only medication. If needing it more than 2 x day, please contact office. Assessment & Plan (05/13/2020 8:47 AM CDT): Patient reiterated no suicidal thoughts at this time; take medication as directed; contact 911 and go to the ER if becomes suicidal; discussed side effects of medication with patient; encouraged healthy diet and exericise; encouraged patient to see a counselor Discussed/ordered labs, Condition is stable encouraged healthy, low carbohydrate lifestyle and at least 150min/week of exercise, continue on paxil 40mg daily. His anxiety is still high. His hydroxyzine 25mg as needed only. He mostly needs this before he goes to work. Please consider the hydroxyzine as a rescue only medication. If needing it more than 2 x day, please contact office. Assessment & Plan (11/12/2019 7:53 AM UTILITY TECH): Patient reiterated no suicidal thoughts at this time; take medication as directed; contact 911 and go to the ER if becomes suicidal; discussed side effects of medication with patient; encouraged healthy diet and exericise; encouraged patient to see a counselor Discussed/ordered labs, Condition is stable, encouraged healthy, low carbohydrate lifestyle and at least 150min/week of exercise, continue seeing psychiatrist Dr. Gibson. Patient currently taking treatment plan Paroxetine 40mg daily, lorazepam 0.5mg as needed-usually about 1-2 times/wk Discussed with patient that we will continue on paroxetine 40mg daily, swap out the lorazepam 0.5mg and switch to hydroxyzine 25mg as needed for anxiety Pt has tried buspirone without any help Gastroesophageal reflux disease 06/21/2013 Overview (01/07/2017): GERD (gastroesophageal reflux disease) Assessment & Plan (02/27/2025 8:54 AM CDT): -chronic, stable Continue on current meds omeprazole 40 mg daily, encouraged healthy diet and exercise Avoid trigger foods including: carbonated beverages, caffeine, spicy, fried foods, tomatoes, cucumbers, mint, and acidic fruits/juices like orange/lemon/grapefruit. Avoid eating/drinking anything for at least 2 hours before bed. Sleep with bed propped. Discussed increased risk of cdif , bone loss and vit B12 deficiency with longterm use of PPI with pt, would like to remain on medication at this time Assessment & Plan (02/20/2024 1:37 PM CDT): -chronic, stable Continue on current meds omeprazole 40 mg daily, encouraged healthy diet and exercise Avoid trigger foods including: carbonated beverages, caffeine, spicy, fried foods, tomatoes, cucumbers, mint, and acidic fruits/juices like orange/lemon/grapefruit. Avoid eating/drinking anything for at least 2 hours before bed. Sleep with bed propped. 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 Avoid eating/drinking anything for at least 2 hours before bed. Sleep with bed propped. Discussed increased risk of cdif , bone loss and vit B12 deficiency with rat exterminator use of PPI with pt, would like to remain on medication at this time Assessment & Plan (01/27/2023 7:04 AM CDT): HPI: Condition is stable Continue on current meds omeprazole 40 mg daily, encouraged healthy diet and exercise Avoid trigger foods including: carbonated beverages, caffeine, spicy, fried foods, tomatoes, cucumbers, mint, and acidic fruits/juices like orange/lemon/grapefruit. Avoid eating/drinking anything for at least 2 hours before bed. Sleep with bed propped. Discussed increased risk of cdif , bone loss and vit B12 deficiency with rat exterminator use of PPI with pt, would like to remain on medication at this time Assessment & Plan (07/20/2022 7:38 AM CDT): HPI: Condition is stable Continue on current meds Omeprazole 40 mg daily, encouraged healthy diet and exercise Avoid trigger foods including: carbonated beverages, caffeine, spicy, fried foods, tomatoes, cucumbers, mint, and acidic fruits/juices like orange/lemon/grapefruit. Avoid eating/drinking anything for at least 2 hours before bed. Sleep with bed propped. Discussed increased risk of cdif , bone loss and vit B12 deficiency with longterm use of PPI with pt, would like to remain on medication at this time Assessment & Plan (01/20/2022 7:02 AM CDT): HPI: Condition is stable Continue on current meds Omeprazole 40 mg daily, encouraged healthy diet and exercise Avoid trigger foods including: carbonated beverages, caffeine, spicy, fried foods, tomatoes, cucumbers, mint, and acidic fruits/juices like orange/lemon/grapefruit. Avoid eating/drinking anything for at least 2 hours before bed. Sleep with bed propped. Discussed increased risk of cdif , bone loss and vit B12 deficiency with longterm use of PPI with pt, would like to remain on medication at this time Assessment & Plan (07/22/2021 7:35 AM CDT): HPI: Condition is stable Continue on current meds Omeprazole 40 mg daily, encouraged healthy diet and exercise Avoid trigger foods including: carbonated beverages, caffeine, spicy, fried foods, tomatoes, cucumbers, mint, and acidic fruits/juices like orange/lemon/grapefruit. Avoid eating/drinking anything for at least 2 hours before bed. Sleep with bed propped. Discussed increased risk of cdif and vit B12 deficiency with longterm use of PPI with pt, would like to remain on medication at this time Assessment & Plan (08/14/2020 8:06 AM UTILITY TECH): HPI: Condition is stable Continue on current meds-omeprazole 40mg daily, encouraged healthy diet and exercise Avoid trigger foods including: carbonated beverages, caffeine, spicy, fried foods, tomatoes, cucumbers, and mint Avoid eating/drinking anything for at least 2 hours before bed. Sleep with bed propped. Discussed increased risk of cdif and vit B12 deficiency with rat exterminator use of PPI with pt, would like to remain on medication at this time He has had no recent flares, it eating better Assessment & Plan (05/13/2020 8:48 AM CDT): Continue on current meds-omprazole 40mg daily, encouraged healthy diet and exercise Avoid trigger foods including: carbonated beverages, caffeine, spicy, fried foods, tomatoes, cucumbers, and mint Avoid eating/drinking anything for at least 2 hours before bed. Sleep with bed propped. Discussed increased risk of B12 def and cdif with longterm use of PPI with pt, would like to remain on medication at this time Assessment & Plan (11/11/2019 8:49 PM UTILITY TECH): Continue on current meds-omprazole 40mg daily, encouraged healthy diet and exercise Avoid trigger foods including: carbonated beverages, caffeine, spicy, fried foods, tomatoes, cucumbers, and mint Avoid eating/drinking anything for at least 2 hours before bed. Sleep with bed propped. Discussed increased risk of cdif with rat exterminator use of PPI with pt, would like to remain on medication at this time Resolved Problems Problem Noted Date Diagnosed Date Resolved Date Viral gastroenteritis 10/12/20232023 Assessment & Plan (10/12/2023 2:23 PM UTILITY TECH): - rapid influenza/COVID and rapid strep negative in office today -work note given excusing patient from work from 10/12/2023 through 10/14/2023 Increase fluids, rest and handwashing Hot water/hot tea with honey No sharing cups or utensils Good hand washing routine Tylenol/Iibuprofen as needed for fever, body aches, etc. Use a humidifier, recommended steam inhalation, hot showers Saline/Salt water gargles, saline nose drops as needed Watch for worsening symptoms, i.e.increasing fever, productive cough, headache, worsening sore throat, excessive tiredness, rash etc Diarrhea of presumed infectious origin 06/16/2023 02/20/2024 Assessment & Plan (06/18/2023 7:52 AM CDT): Acute problem-this is a new problem that started today Patient had eaten out late the night before Ordered COVID, flu a B-results negative Labs ordered-stool study, CBC Patient has not had a recurrent episode of diarrhea for about 1 hour prior to being here to be seen Encouraged to follow a clear liquid diet for 24-48 hours and slowly advanced to soft bland, then advanced back to regular diet. Patient instructed that if he advances to soft bland diet and diarrhea recurs, go back to clear liquids and call to schedule an appointment to be seen Continue to monitor Ddx: colitis, gastroenteritis Nausea 06/16/2023 02/20/2024 Assessment & Plan (06/18/2023 7:57 AM CDT): Acute problem-this is a new problem that started this morning Stable and improving Denies vomiting Encouraged to avoid late-night eating, especially foods that are spicy or high in fat, or greasy Clear liquids-Gatorade would be beneficial to help ensure electrolyte balancing Follow-up as scheduled-sooner p.r.n. if no improvement Continue to monitor Mild intermittent asthma 07/20/2019 Assessment & Plan (07/22/2022 8:41 AM CDT): HPI: Condition is stable A&P: Discussed/ordered labs, encouraged healthy, low carbohydrate lifestyle and at least 150min/week of exercise, pt does not have albuterol and does not feel he needs this. Feels like he does not have asthma. Assessment & Plan (01/20/2022 8:38 AM CDT): HPI: Condition is stable A&P: Discussed/ordered labs, encouraged healthy, low carbohydrate lifestyle and at least 150min/week of exercise, Please consider the albuterol as a rescue only medication. If needing the albuterol more than 2xwk, please contact office. Discussed with patient/parent that asthma appears to be well controlled at this time but to monitor for changes in breathing/wheezing symptoms as allergies/cold symptoms can cause an asthma flare. Contact office if pt begins with concerning asthma symptoms Recommend [id number] vaccine today, recommend [id number] next year (not available at this time) Assessment & Plan (07/22/2021 7:35 AM CDT): HPI: Condition is stable A&P: Discussed/ordered labs, encouraged healthy, low carbohydrate lifestyle and at least 150min/week of exercise, Please consider the albuterol as a rescue only medication. If needing the albuterol more than 2xwk, please contact office. Discussed with patient/parent that asthma appears to be well controlled at this time but to monitor for changes in breathing/wheezing symptoms as allergies/cold symptoms can cause an asthma flare. Contact office if pt begins with concerning asthma symptoms Assessment & Plan (08/14/2020 8:05 AM UTILITY TECH): HPI: Condition is stable A&P: Discussed/ordered labs, encouraged healthy, low carbohydrate lifestyle and at least 150min/week of exercise, Please consider the albuterol as a rescue only medication. If needing the albuterol more than 2xwk, please contact office. PFT done in May 2020 showed no obstruction Has not needed albuterol. Assessment & Plan (05/12/2020 8:27 PM CDT): Discussed/ordered labs, Condition is stable, encouraged healthy, low carbohydrate lifestyle and at least 150min/week of exercise, continue on albuterol inhaler. Please consider the albuterol as a rescue only medication. If needing the albuterol more than 2xwk, please contact office. Assessment & Plan (11/11/2019 8:51 PM UTILITY TECH): Discussed/ordered labs, Condition is stable, encouraged healthy, low carbohydrate lifestyle and at least 150min/week of exercise, continue on albuterol inhaler. Please consider the albuterol as a rescue only medication. If needing the albuterol more than 2xwk, please contact office. Benign hypertension 02/14/2017 08/23/20 18 NOLAND (dyspnea on exertion) 02/10/2017 Precordial pain 02/10/2017 08/14/2020 Rib pain 11/15/2014 08/14/2020 Overview (01/07/2017): Rib pain on left side Bronchitis 11/15/2014 08/23/2018 Overview (01/07/2017): Bronchitis Encounters Date Type Department Care Team Description 04/22/2025 8:00 AM CDT Office Visit [facility] Primary Care at [address] [address] Hollie Alvares NP Mild episode of recurrent major depressive disorder (Primary Dx); Anxiety; Bipolar 1 disorder, mixed, severe (HCC); Diarrhea, unspecified type; Class 3 severe obesity with serious comorbidity and body mass index (BMI) of 45.0 to 49.9 in adult 03/08/[address] [facility] Primary Care at [address] [phone] Hollie Alvares NP Mild episode of recurrent major depressive disorder 03/07/[address] [facility] Care at [address] [address] Hollie Alvares NP Medication Request 03/04/2025 Orders Only [facility] Primary Care at [address] [address] Hollie Alvares NP 03/01/2025 Results Follow-Up [facility] Primary Care at [address] [address] Hollie Alvares NP Vitamin D 25 hydroxy, Hemoglobin A1c, Lipid panel, Additional followed-up results: 5 from Last 3 Months Immunizations Immunization Administration Dates Next Due Influenza, Quadrivalent, Spl it, Preservative Free, Intramuscular 09/30/2023,07/22/2022,07/22/2021,08/14 Influenza, Trivalent, Preser vative Free, Intramuscular 08/22/2024 Influenza, Unspecified 06/16/2023(Deferr ed: Patient decision),07/17/2019(Deferred: Patient decision),11/03/2018(Deferred: Patient ill today - ill @ office visit) Pneumococcal Polysaccharide PPV23 01/20/2022 Tdap 11/12/2019 Surgical History Surgery Date Site/Laterality Comments FOOT FRACTURE SURGERY Left Medical History Medical History Date Comments Depression Depression Gastroesophageal reflux disease GERD Anxiety disorder Anxiety Mild intermittent asthma 07/20/2019 Family History Medical History Relation Name Comments Asthma Father Dementia Father Dementia; Heart disease Father Hypertension Father Pulmonary embolism Father Asthma Mother Relation Name Status Comments Father Mother Social History Tobacco Use Types Packs/Day Years Used Date Smoking Tobacco: Never Smokeless Tobacco: Never Tobacco Cessation:Counseling Given: Not Answered Alcohol Use Standard Drinks/Week Comments Yes 0 (1 standard drink = 0.6 oz pur e alcohol) AUDIT-C Answer Date Recorded Q1: How often do you have a drink containing alc ohol? Monthly or less 02/27/2025 Q2: How many drinks containi ng alcohol do you have on a typical day when you are drinking? 1 or 2 02/27/2025 Q3: How often do you have si x or more drinks on one occasion? Never 02/27/2025 PHQ-2 Answer Date Recorded PHQ-2 Total Score (If total score is 3 or more points, staff should administer the PHQ-9) 1 04/22/2025 Personal Safety Answer Date Recorded Have you ever been in or are you currently in a harmful physical or emotional relationship or is someone making you feel afraid or unsafe? Denies 11/26/2024 Sex and Gender Information Value Date Recorded Sex Assigned at Not on file Legal Sex Male 9:45 AM UTILITY TECH Gender Identity Not on file Sexual Orientation Straight 05/09/2020 10 :13 AM CDT Obstetrics History Last Filed Vital Signs Vital Sign Reading Time Taken Comments Blood Pressure 130/88 04/22/2025 8:24 AM CDT man ual Pulse 97 04/22/2025 8:00 AM CDT Temperature 36.4 C (97.6 F) 04/22/2025 8:00 AM CDT Respiratory Rate 20 04/22/2025 8:00 AM CDT Oxygen Saturation 97% 04/22/2025 8:00 AM CDT Inhaled Oxygen Concentration - - Weight 137.1 kg (302 lb 3.2 oz) 04/22/2025 8:00 AM CDT Height 173.2 cm (5' 8.19) 04/22/2025 8:00 AM CD T Body Mass Index 45.69 04/22/2025 8:00 AM CDT Plan of Treatment Health Maintenance Due Date Last Done Comments HPV Vaccines (1 - 3-dose SCDM series) 2010 Influenza Vaccine (#1) 2025 , 09/30/2023, 07/22/2022, Additional history exists Regular Well Visit/Exam 18-64 02/27/2026 02/27/2025, 02/22/2024, 01/27/2023 Depression Screening 04/22/2026 04/22/2025, 02/27/2025, 08/22/2024, Additional history exists DTaP/Tdap/Td Vaccine (2 - Td or Tdap) 11/12/2029 11/12/2019 Pneumococcal vaccine <65 Aged Out 01/20/2022 No longer eligible based on patient's age to complete this topic Hepatitis C Screening Completed 07/22/2022 Hepatitis B Screening Completed 02/22/2024 Varicella Vaccines Discontinued Procedures Procedure Name Priority Date/Time Associated Diagnosis Comments HEPATITIS C ANTIBODY Routine 07/22/2022 9:01 AM CDT Encounter for hepatitis C screening test for low risk patient from Last 3 Months or Most Recently Relevant to Health Maintenance Results * Hepatitis C antibody (07/22/2022 9:01 AM CDT) Hep C Ab Nonreactive Nonreactive [facility] ([place]) Comment: Interpretive Data Nonreactive: Antibodies to HCV not detected. Does NOT exclude the possibility of recent exposure to HCV. Equivocal: Equivocal for HCV antibodies. Supplemental molecular testing will be automatically performed to determine infection status in accordance with current CDC screening recommendations. Reactive: Positive for HCV antibodies. This may represent current or past HCV infection. Supplemental molecular testing will be automatically performed to determine current infection status in accordance with current CDC screening recommendations. Interpretive data was last revised on 2019. Testing performed by: [facility], [address] [place] [address], [place]., [address] Blood 07/22/2022 9:01 AM CDT 07/22/2022 2:11 PM CDT Belinda Rivas NP LAB MICROBIOLOGY - GENERAL ORDERABLES Edited Result - Final [facility] ([place]) [facility] Department [place] [address] from Last 3 Months or Most Recently Relevant to Health Maintenance Insurance [facility] [employer] [place] Care Teams Saddle Maker Relationship Specialty Start Date End Date Hollie Alvares NP [address] [facility] [address] [place] [address] PCP - General Family Medicine 09/14/22 Evy Huffman MD [address] [facility] [address] [place] [address] Consulting Physician Sleep Medicine 02/27/25
--- OUTSIDE RECORDS SUMMARY | 2025-05-31 14:25 | XMS_ITS | Clinical Summary ---
Author Organization [facility] Address [address] [place] [address] Care Team Providers Care Employee Communications Coordinator Name Role Phone Unavailable Primary Care Provider Unavailabl e Allergies Active Allergy Reactions Criticality Noted Date Comments Erythromycin Itching Low 02/10/2017 Lisinopril Palpitations Low 09/14/2017 Medications PARoxetine HCl (PAXIL) 30 mg tablet Take 30 mg by mouth daily. Active aspirin (ECOTRIN EC) 81 mg Tablet, Delayed Release (E.C.) Take 81 mg by mouth daily. Active hydrOXYzine HCL (ATARAX) 25 mg tablet Take 25 mg by mouth. 01/20/2023 Active ergocalciferol (VITAMIN D2) 50,000 unit capsule Take 50,000 Units by mouth every 30 days. Active omeprazole (PriLOSEC) 40 mg Capsule, Delayed Release(E.C.) Take 40 mg by mouth daily. 04/06/2025 Active ondansetron (ZOFRAN ODT) 4 mg Tablet, Rapid Dissolve Take 4 mg by mouth. 09/28/2024 Active metFORMIN (GLUCOPHAGE XR) 500 mg Extended Release 24 hour tablet Take 500 mg by mouth daily with breakfast. 02/27/2025 Active ARIPiprazole (ABILIFY) 10 mg tablet Take 10 mg by mouth daily. 05/28/2024 Active Cholestyramine- Sucrose 4 gram Powder Take 4 Grams by mouth daily. 04/22/2025 5 sulfamethoxazol e-trimethoprim (BACTRIM DS) 800-160 mg tabletIndicatio ns:Cellulitis of neck Take 1 Tablet by mouth 2 times daily for 7 days. 14 Tablet 04/26/2025 5 Active Problems Patient Care Coordination No te Formatting of this note migh t be different from the original. Dr Tunde Sterling, cardiology Problem Noted Date Diagnosed Date Benign hypertension 02/14/2017 Family history of premature CAD 02/14/2017 Precordial pain 02/10/2017 NOLAND (dyspnea on exertion) 02/10/2017 Encounters Date Type Department Care Team Description 05/21/2025 External Device Data [facility] ABSTRACTION Provider, Abstract 05/08/2025 External Device Data [facility] Provider, Abstract 04/26/2025 12:00 PM CDT Office Visit [facility] [address] [address] Elham Kimble PA-C Cellulitis of neck (Primary Dx); Bacterial infection, unspecified from Last 3 Months Family History Relation Name Status Comments Brother Alive Father Mother Alive Sister Alive Social History Tobacco Use Types Packs/Day Years Used Date Smoking Tobacco: Never Smokeless Tobacco: Never Tobacco Cessation:Counseling Given: Not Answered Alcohol Use Standard Drinks/Week Comments Never 0 (1 standard drink = 0.6 oz pur e alcohol) Sex and Gender Information Value Date Recorded Sex Assigned at Not on file Legal Sex Male 2:49 PM CDT Gender Identity Not on file Sexual Orientation Not on file Last Filed Vital Signs Vital Sign Reading Time Taken Comments Blood Pressure 120/87 04/26/2025 12:09 PM CDT Pulse 110 04/26/2025 12:09 PM CDT Temperature 37 C (98.6 F) 04/26/2025 12:09 PM CDT Respiratory Rate 18 04/26/2025 12:09 PM CDT Oxygen Saturation 95% 04/26/2025 12:09 PM CDT Inhaled Oxygen Concentration - - Weight 137 kg (302 lb) 04/26/2025 12:09 PM CDT Height 172.7 cm (5' 8) 04/26/2025 12:09 PM CDT Body Mass Index 45.92 04/26/2025 12:09 PM CDT Plan of Treatment Health Maintenance Due Date Last Done Comments Pre-Diabetes and Diabetes Screening 1983 HEPATITIS B VACCINES (1 of 3 - 19+ 3-dose series) 2002 HPV VACCINES (1 - 3-dose SCD M series) 2010 INFLUENZA VACCINE (#1) 2025 4, 09/30/2023, 07/22/2022, Additional history exists DTAP/TDAP/TD VACCINES (2 - T d or Tdap) 11/12/2029 11/12/2019 Insurance [facility] [employer] [facility] [employer] [id number] Advance Directives For more information, please contact: [phone] * Full Code (Latest Code Status on File) Date Activated Date Inactivated Comments 02/25/2017 7:20 AM 02/25/2017 2:59 PM
--- OUTSIDE RECORDS SUMMARY | 2025-05-31 14:25 | XMS_ITS | Clinical Summary ---
Author Organization [facility] Address [address] [place] [address] Care Team Providers Care Conference Organizer Name Role Phone Belinda Rivas SWEET [employer] DISINTE[employer] LIGHT CLEANER Primary Care Provide r Source Comments [facility],non-owned Affiliates and Associated Physician Practices is amultiple site organization consisting of ambulatory clinics and hospital sitesin [place], [place], [place] and [place]. This disclosure is being madepursuant to the Care Everywhere program and may not contain all information available regarding this patient. Last updated 18.[facility] Allergies Active Allergy Reactions Criticality Noted Date Comments Erythromycin 04/21/2016 Lisinopril Palpitations Low 09/14/2017 Medications * Be aware that medications may not be up to date on this document. Alwaysverify current medications with the patient. PARoxetine (PAXIL) 40 MG tablet Take 40 mg by mouth once daily Active pantoprazole EC (PROTONIX) 40 MG tablet Take 40 mg by mouth once daily Active HYDROcodone-josé miguel taminophen (NORCO) 5-325 MG tablet Take 1 Tab by mouth every 4 hours as needed for Pain 15 Tab 0 6 Active Additional Information Patient not taking.Reported on 07/15/2022 ibuprofen (MOTRIN) 600 MG tablet Take 1 Tab by mouth every 6 hours as needed for Pain 20 Tab 0 6 Active cyclobenzaprine (FLEXERIL) 10 MG tablet Take 1 Tab by mouth 3 times daily as needed for Muscle Spasms 15 Tab 0 6 Active Additional Information Patient not taking.Reported on 07/15/2022 vitamin D, ergocalciferol, (DRISDOL) 32054 UNITS capsule Take 50,000 Units by mouth every 30 days Active hydrOXYzine HCl (Atarax) 25 MG tablet Take 25 mg by mouth 4 times daily as needed for Itching Active Active Problems No known active problems Social History Tobacco Use Types Packs/Day Years Used Date Smoking Tobacco: Never Cigarettes Smokeless Tobacco: Never Alcohol Use Standard Drinks/Week Comments Not Asked 0 (1 standard drink = 0.6 oz pur e alcohol) Sex and Gender Information Value Date Recorded Sex Assigned at Not on file Legal Sex Male 12:21 PM CDT Gender Identity Not on file Sexual Orientation Not on file Last Filed Vital Signs Vital Sign Reading Time Taken Comments Blood Pressure 137/100 12/05/2018 8:49 AM SENIOR ENERGY CONSULTANT Pulse 82 12/05/2018 8:24 AM SENIOR ENERGY CONSULTANT Temperature 36.7 C (98.1 F) 12/05/2018 8:24 AM SENIOR ENERGY CONSULTANT Respiratory Rate 16 12/05/2018 8:24 AM SENIOR ENERGY CONSULTANT Oxygen Saturation 97% 12/05/2018 8:24 AM SENIOR ENERGY CONSULTANT Inhaled Oxygen Concentration - - Weight 112.5 kg (248 lb) 12/05/2018 8:24 AM SENIOR ENERGY CONSULTANT Height 172.7 cm (5' 8) 12/05/2018 8:24 AM SENIOR ENERGY CONSULTANT Body Mass Index 37.71 12/05/2018 8:24 AM SENIOR ENERGY CONSULTANT Plan of Treatment Health Maintenance Due Date Last Done Comments LIPID TESTING 1983 HIV SCREENING 1998 HEPATITIS C SCREENING 03/04/2001 DTAP/TDAP/TD VACCINES (1 - Tdap) 2002 HEPATITIS B VACCINE (1 of 3 - 19+ 3-dose series) 2002 HPV VACCINE (1 - 3-dose SCDM series) 2010 COVID-19 VACCINE ( - 2023-2 5 season) 2024 DEPRESSION SCREENING 10/03/2024 INFLUENZA VACCINE (#1) 2025 1, 08/14/2020 ZOSTER VACCINE (1 of 2) 2033 HIB VACCINE Aged Out No longer eligi ble based on patient's age to complete this topic MENINGOCOCCAL (Group B) VACCINE SHARED DECISION-MAKING Aged Out No longer eligible based on patient's age to complete this topic MENINGOCOCCAL GROUPS A/C/Y/W VACCINE Aged Out No longer eligible b ased on patient's age to complete this topic PNEUMOCOCCAL VACCINE Aged Out No long er eligible based on patient's age to complete this topic Insurance ANTHEM [id number] 10/[address] [employer] Care Teams Conference Organizer Relationship Specialty Start Date End Date Belinda Rivas APRN-MIRANDA [address] [place] [address] [place] [address] PCP - General Nurse Practitioner Family 07/15/22
[2025-05-31 14:30] VITALS: BP 145/92; PULSE 102; RESP 20; TEMP 36; O2SAT 97
--- NOTE | 2025-05-31 15:01 | ED_ITS ---
HPI - General Adult General Chief complaint: Headache Stated complaint: headache Time Seen by Provider: 05/31/25 15:02 Source: patient, RN notes reviewed and old records reviewed Mode of arrival: ambulatory Limitations: no limitations History of Present Illness HPI narrative: 40-year-old male presents to the [facility] with complaints of a headache that started this morning. Did take to and ibuprofen 600 mg. States that he did vomit 2 times. Denies any blurry vision or change in vision. Denies any abdominal pain. Denies chest pain or shortness of breath Patient also reports right lower dental pain, swelling. Has not seen a dentist in many ears. States symptoms have been going on for 3-4 days. Requesting a work note Related Data Home Medications ?Medication ?Instructions ?Recorded ?Confirmed ?Last Taken ?Type omeprazole 40 mg capsule,delayed 40 mg PO DAILY 08/03/23 Unknown History release paroxetine HCl 40 mg tablet (Paxil) 40 mg PO QAM 10/1808/03/23 Unknown History hydroxyzine HCl 25 mg tablet 25 mg PO DAILY 04/17/20 1 10/03/22 Unknown History aripiprazole 20 mg tablet 20 mg PO DAILY 03/30/2110/25 Unknown History Allergies Allergy/AdvReac Type Severity Reaction Status Date / Time erythromycin base Allergy Unknown Unknown Verified 05/31/25 14:36 lisinopril Allergy Difficulty Verified 05/31/25 14:36 Breathing Review of Systems Review of Systems: All systems reviewed & are unremarkable except as noted in HPI and below Constitutional: Constitutional: Reports as per HPI and Reports headache(s) ENT: Reports as per HPI and Reports dental pain Cardiovascular: Cardiovascular: Reports no additional cardiovascular complaints, Denies chest pain and Denies dyspnea Respiratory: Respiratory: Reports no additional respiratory complaints, Denies chest congestion, Denies cough and Denies dyspnea Gastrointestinal: Gastrointestinal: Reports as per HPI, Denies abdominal pain, Denies belching, Denies nausea and Reports vomiting Musculoskeletal: Musculoskeletal: Reports no additional musculoskeletal complaints Integumentary/Breasts: Skin/Breast: Reports system reviewed and no additional complaints, except as docu PMFSH Past Medical History Medical History Fracture of left foot Anxiety GERD (gastroesophageal reflux disease) Social History Social History Smoking status: Never smoker Gender identity (if verbalized by the patient): Male Comments At the time of my signature, I reviewed and agree with the nursing past medical, surgical, social, and family history. There is no relevant family history pertinent to the patient complaint. Exam Const: General: cooperative, healthy appearing, comfortable, no acute distress, well developed, alert and well nourished Nutritional Appearance: well nourished and obese Orientation/consciousness: patient oriented x3 Limitations: no limitations HENMT: Head: normal to inspection Ears: hearing grossly normal bilaterally, external ears normal, TM's normal bilaterally, EAC's normal, mastoids normal and no periauricular adenopathy Teeth and gingiva: abnormal tooth and associated gingiva (Right lower, swollen gingiva) and fair dentition Throat: posterior oropharynx normal, uvula midline and no uvular edema Eyes: General: appearance normal, both eyes and all related structures Alignment and Position: alignment normal Neck: Neck: normal visual inspection, full ROM, no lymphadenopathy and no meningeal signs Chest: Chest palpation & inspection: normal inspection of the chest Resp: Effort & Inspection: normal respiratory effort and able to speak in complete sentences Auscultation: clear to auscultation bilaterally, no crackles, no rales, no rhonchi and no wheezes Cardio: Rate: regular rate GI: GI Palp: No abdominal tenderness Skin: General skin exam: normal color and no rashes or lesions noted Neuro: General: patient oriented x3, gait normal, moves all extremities and no meningeal signs Cognition (Neuro): normal cognition Speech: normal speech Gait exam (Neuro): Normal gait present Extrem: General: normal to inspection, full ROM, capillary refill normal and normal gait Psych: Appearance: grossly normal and well kempt Mental Status: mental status grossly normal Speech and movement: Normal speech and movement present and Clear speech present Affect: normal affect Attitude: cooperative Course Course Level of Care: Express Care Visit Vital Signs Vital signs: Vital Signs Temperature 96.8 F L 05/31/25 14:30 Pulse Rate 102 H 05/31/25 14:30 Respiratory Rate 20 05/31/25 14:30 Blood Pressure 145/92 H 05/31/25 14:30 Pulse Oximetry 97 05/31/25 14:30 Oxygen Delivery Room Air 05/31/25 14:30 Temperature 96.8 F L 05/31/25 14:30 Pulse Rate 102 H 05/31/25 14:30 Respiratory Rate 20 05/31/25 14:30 Blood Pressure 145/92 H 05/31/25 14:30 Pulse Oximetry 97 05/31/25 14:30 Oxygen Delivery Room Air 05/31/25 14:30 Reviewed Medical Decision Making MDM Narrative Medical decision making narrative: Patient sitting comfortably in exam room. Nontoxic, vitals stable. Patient in no acute distress Patient presents with a headache, vomiting x2, lower right dental pain with swelling. Patient denies any abdominal pain. No acute findings noted on exam. Flu and COVID were negative. requesting a work note Discharge instructions reviewed with patient, as well as provided in writing per nursing staff. The instructions also include specific and strict return/GO TO THE ER as well as f/u information. All questions have been answered, and the patient deny any further questions with discharge and discharge plan. Some parts of this dictation were generated by voice recognition software and may contain typographical and/or grammatical inaccuracies. Differential Diagnosis Differential Diagnosis: Flu, COVID, URI, headache, gastroenteritis, dental infection Medical Records Medical records reviewed: Yes I reviewed the external patient's medical records. Vital Signs Vital Signs: Vital Signs Temperature 96.8 F L 05/31/25 14:30 Pulse Rate 102 H 05/31/25 14:30 Respiratory Rate 20 05/31/25 14:30 Blood Pressure 145/92 H 05/31/25 14:30 Pulse Oximetry 97 05/31/25 14:30 Oxygen Delivery Room Air 05/31/25 14:30 Temperature 96.8 F L 05/31/25 14:30 Pulse Rate 102 H 05/31/25 14:30 Respiratory Rate 20 05/31/25 14:30 Blood Pressure 145/92 H 05/31/25 14:30 Pulse Oximetry 97 05/31/25 14:30 Oxygen Delivery Room Air 05/31/25 14:30 Reviewed Lab Data Lab results reviewed: Yes I reviewed the patient's lab results. Labs: Lab Results 05/31/25 Range/Units 15:19 POC SARS CoV-2 Ag Negative (Negative) Reviewed Critical Care Time Critical Care Time Critical Care Time: No Discharge Plan Discharge Clinical Impression: Dental infection Headache Qualifiers: Headache type: unspecified Patient Disposition: Home Condition: Stable Instructions: Dental Abscess (ED), Acute Headache (DC) Additional Instructions: Finish the entire course of antibiotics for the dental infection Be sure to pressure T twice a day and using good mouthwash After every time you eat be sure to use salt water rinses. Apply ice to face to help with pain. Take Tylenol alternating with Motrin as needed for pain per package instructions. You can alternate every 4 hours. You need to follow-up with a dental provider as soon as possible for further evaluation and treatment Follow up with a Primary Care Provider (PCP) about medical needs. A PCP can help keep you healthy by preventive medicine and screening. Today your blood pressure was 145/92. Is a recommended you follow-up with your primary care provider to have this rechecked within 2 weeks For the headache rest in a cool dark room. If you develop any worsening symptoms such as blurry vision change in vision or weakness please go to the nearest emergency room for further evaluation, testing and treatment Go to the ER for New or worsening symptoms. Patient Language: Indian Prescriptions: New penicillin V potassium 500 mg tablet 500 mg PO TID 7 Days Qty: 21 0RF ibuprofen 600 mg tablet 600 mg PO TID PRN (Reason: fever or pain) Qty: 30 0RF No Action omeprazole 40 mg Capsule,Delayed Release(Dr/Ec) 40 mg PO DAILY paroxetine HCl [Paxil] 40 mg Tablet 40 mg PO QAM aripiprazole 20 mg Tablet 20 mg PO DAILY hydroxyzine HCl 25 mg Tablet 25 mg PO DAILY Follow-up/Referrals: PHYSICIAN NOT ON STAFF,NONSTAFF [Primary Care Provider] Stand Alone Forms: Work/School Release IP Time of Disposition: 15:23
[2025-05-31 15:20] LABS: EDCOVIDSCREEN Negative (Negative)
== END 2025-05-31 15:27 | disposition home or self-care (01) ==
PROVIDERS: Emergency Provider Nurse Practitioner
DX: K04.7 Periapical abscess without sinus (principal); R51.9 Headache, unspecified; Z20.822 Contact with and (suspected) exposure to COVID-19; K21.9 Gastro-esophageal reflux disease without esophagitis; F41.9 Anxiety disorder, unspecified
CPT/HCPCS: 87426; 99213; G0463